=== PATIENT | male | born 1950 | race Caucasian/White ===

== ENCOUNTER 2016-08-06 13:34 | Emergency (ER) | payer MEDICARE, MEDICAID ==
[~2016-08-06] VITALS: Ht 188 cm; Wt 113.5 kg
[~2016-08-06 13:34] MED LIST: ADV1DS1; ALFU10TA6 PO; ALPR.5T PO; ALPR0.5T7 PO; ALPR0.5T72 PO; AMIT150T PO; AMLO5TAB2 PO; AMT50T; ASP81TEC PO; ASPI-587 PO; ASPI-84 PO; BIAXIN; BPR100T PO; BUPR150T PO; CARV12.5 PO; CIPR-120 PO; CIPR-226 PO; CIPR250S2 PO; CIPR500T4 PO; CIPR500T78 PO; CLOP75TA PO; CLPD75T PO; CYCL10TA9 PO; DOXA4TAB2 PO; FINA5TAB6 PO; FLUT1DIS27 IH; HYDR-2890 PO; HYDR-3720 PO; HYDR-3820 PO; HYDR-757 PO; INSASP10V SQ; INSU100I14 SQ; INSU100I4 SQ; INSU100V19 SQ; INSULIN; IPRA3AMP11 INH; ISM60TCR; ISOS30TA3 PO; ISOS60TA PO; LEVE1U SQ; LEVO250T11 PO; LEVO500T69 PO; LISI10TA PO; LISI10TA2 PO; METO-354 PO; METO100T2 PO; METO100T5 PO; MNTL10T PO; MTP25TSR PO; NITR-65 PO; NITR0.3T6 SL; NITR1OIN TD; NITR1PAT27 TD; NITR1PAT63 TD; NTR.4SL SL; OMEP20TA2 PO; ONDA4TAB11 PO; ONDA8TAB9 PO; ONDAN4ODT PO; OXYC-197 PO; PANT20TA2 PO; PRAV20TA3 PO; PRV20T PO; SULF1TAB23 PO; SULF1TAB35 PO; SULF1TAB38 PO; TMSL.4C PO; VERA120C2 PO; VOLTAREN; VRP240TCR PO; VYTORIN
--- NOTE | 2016-08-06 15:16 | ED General ---
General Chief Complaint: General Problems/Pain Stated Complaint: VOMITING Source of Information: Patient Exam Limitations: No Limitations History of Present Illness Time Seen by Provider: 15:10 Initial Comments This 65-year-old white male presents with a complaint of having missed his most recent dialysis, dysuria, and shortness of breath with wheezing. The patient is a not particularly eloquent historian but it appears that he missed his most recent dialysis, is concerned he may have a urinary tract infection, and believes that he may have some degree of fluid overload causing his shortness of breath or wheezing he denies associated fever, hematuria, productive cough, vomiting, diarrhea, or flank pain. Allergies and Home Medications Allergies Coded Allergies: Penicillins (Verified Allergy, Severe, YEAST INFECTION, 11/26/15) celecoxib (Unverified Allergy, Unknown, 01/31/10) Home Medications Alprazolam 0.5 Mg Tablet 0.5 MG PO TID PRN PRN ANXIETY (Reported) Amitriptyline Hcl 150 Mg Tablet 150 MG PO HS (Reported) Amlodipine Besylate 5 Mg Tablet 5 MG PO DAILY (Reported) Ciprofloxacin HCl 500 Mg Tablet #5 500 MG PO DAILY Prescribed by: SHELLY NUNEZ on 09/13/15 0323 Clopidogrel Bisulfate 75 Mg Tablet 75 MG PO HS (Reported) Cyclobenzaprine HCl 10 Mg Tablet 10 MG PO TID PRN PRN MUSCLE SPASMS (Reported) Finasteride 5 Mg Tablet 5 MG PO HS (Reported) Hydrocodone/Acetaminophen 1 Each Tablet 1 TAB PO Q6H (Reported) Hydrocodone/Acetaminophen 1 Each Tablet #10 1 EACH PO Q6H PRN PRN PAIN Prescribed by: NATI LUNA on 04/20/16 1552 Insulin Aspart 100 Unit/1 Ml Insuln.pen 15 UNITS SQ 1200 (Reported) LAST FILLED 03/19/15 Insulin Determir 100 U/Ml Insuln.pen 55 UNIT SQ BID (Reported) LAST FILLED 01/30/15 Isosorbide Mononitrate 30 Mg Tab.er.24h #30 30 MG PO DAILY Prescribed by: ROSELIA ESTEBAN on 05/06/15 0850 Levofloxacin 250 Mg Tablet #5 250 MG PO Q48H Prescribed by: NATI LUNA on 07/17/16 1429 Metoprolol Tartrate 100 Mg Tablet 100 MG PO BID (Reported) LAST FILLED 02/24/15 Montelukast Sodium 10 Mg Tablet 10 MG PO HS (Reported) Nitroglycerin 1 Each Patch.td24 0.4 MG TD DAILY PRN PRN CHEST PAIN (Reported) Ondansetron 4 Mg Tab.rapdis #10 4 MG PO Q6H PRN PRN NAUSEA Prescribed by: RAJI ZARATE on 02/17/16 1412 Oxycodone HCl/Acetaminophen 1 Each Tablet #10 1 EACH PO Q6H Prescribed by: NATI LUNA on 11/26/15 1617 Pantoprazole Sodium 20 Mg Tablet.dr #30 20 MG PO DAILY Prescribed by: ROSELIA ESTEBAN on 05/06/15 0850 Tamsulosin Hcl 0.4 Mg Cap 0.4 MG PO HS (Reported) Constitutional: No chills, No fever EENTM: No ear pain, No throat pain Respiratory: No cough, short of breath Cardiovascular: No chest pain Gastrointestinal: No diarrhea, No vomiting Genitourinary: dysuriaNo hematuria Musculoskeletal: No back pain Skin: No rash Psychiatric/Neurological: No Symptoms Reported Hematologic/Lymphatic: No Symptoms Reported Immunological/Allergic: no symptoms reported Past Ekoodlp-Dcphzx-Ogolbw Hx Patient Social History Alcohol Use: Denies Use Recreational Drug Use: No Smoking Status: Never a Smoker Recent Foreign Travel: No Contact w/Someone Who Travel: No Recent Hopitalizations: No Physical Abuse Screen: No Sexual Abuse: No Immunizations Up To Date Tetanus Booster (TDap): Unknown PED Vaccines UTD: No Date of Pneumonia Vaccine: Mar 30, 2012 Date of Influenza Vaccine: Jun 11, 2016 Seasonal Allergies Seasonal Allergies: No Surgeries HX Surgeries: Yes (R TKR, 3 BACK SURGERIES) Surgeries: Cardiac, Gallbladder, Joint Replacement, Orthopedic Respiratory Hx Respiratory Disorders: Yes (REACTIVE AIRWAY DZ; HOME 2 AT HS ) Respiratory Disorders: Asthma, Sleep Apnea, COPD Cardiovascular Hx Cardiac Disorders: Yes (ARTERIAL SCLEROTIC VASCULAR DZ, MODERATE CAD) Cardiac Disorders: Coronary Artery Disease, Heart Attack, High Cholesterol, Hypertension Neurological Hx Neurological Disorders: Yes (MILD MENTAL IMPAIRMENT AND SPEECH IMPEDIMENT) Neurological Disorders: Neuropathy Reproductive System Hx Reproductive Disorders: No Sexually Transmitted Disease: No HIV/AIDS: No Genitourinary Hx Genitourinary Disorders: Yes (urinary retention, ) Genitourinary Disorders: Benign Prostatic Hyperpl, Prostate Problems, Renal Failure, UTI-Chronic Gastrointestinal Hx Gastrointestinal Disorders: Yes Gastrointestinal Disorders: Gastroesophageal Reflux, Gall Bladder Disease Musculoskeletal Hx Musculoskeletal Disorders: Yes (titanium cesar in back- dr. whitley) Musculoskeletal Disorders: Arthritis, Chronic Back Pain Endocrine Hx Endocrine Disorders: Yes (DM TYPE 2) Endocrine Disorders: Diabetes, Insulin dep HEENT HX ENT Disorders: Yes HEENT Disorders: Cataract Loss of Vision: Denies Hearing Impairment: Denies Cancer Hx Cancer: No Psychosocial Hx Psychiatric Problems: Yes Behavioral Health Disorders: Anxiety Integumentary HX Skin/Integumentary Disorder: No Blood Transfusions Hx Blood Disorders: No Reviewed Nursing Assessment Reviewed/Agree w Nursing PMH: Yes Family Medical History Significant Family History: No Pertinent Family Hx Family Medial History: Diabetes mellitus FH: rheumatoid arthritis Hypertension Physical Exam Vital Signs Vital Sign - Last 12Hours 08/06/16 14:21 Temp 98.1 Pulse 74 Resp 16 B/P 140/79 Pulse Ox 96 O2 Delivery Room Air Capillary Refill : General Appearance: No Apparent Distress WD/WN Eyes: Bilateral Eye Normal Inspection HEENT: TMs Normal Neck: Normal Inspection Respiratory: Lungs Clear Cardiovascular: Regular Rate, Rhythm Gastrointestinal: Normal Bowel Sounds No Pulsatile Mass Non Tender Soft Back: Normal Inspection Extremity: Normal Capillary Refill Normal Range of Motion Neurologic/Psychiatric: Oriented x3 No Motor/Sensory Deficits Normal Mood/ Affect Skin: Normal Color Warm/Dry Progress/Results/Core Measures Results/Orders Lab Results Laboratory Tests Test 08/06/16 15:32 08/06/16 16:05 Range/Units Alanine Aminotransferase (ALT/SGPT) 13 0-55 U/L Albumin 3.7 3.2-4.5 G/DL Alkaline Phosphatase 98 40-136 U/L Anion Gap 12 5-14 MMOL/L Aspartate Amino Transf (AST/SGOT) 14 5-34 U/L BUN/Creatinine Ratio 10 Basophils # (Auto) 0.1 0.0-0.1 10^3/uL Basophils (%) (Auto) 1 0-10 % Blood Urea Nitrogen 49 H 7-18 MG/DL Calcium Level 8.9 8.5-10.1 MG/DL Carbon Dioxide Level 19 L 21-32 MMOL/L Chloride Level 101 98-107 MMOL/L Creatinine 5.05 H 0.60-1.30 MG/DL Eosinophils # (Auto) 0.4 H 0.0-0.3 10^3/uL Eosinophils (%) (Auto) 4 0-10 % Estimat Glomerular Filtration Rate 12 Glucose Level 181 H 70-105 MG/DL Hematocrit 35 L 40-54 % Hemoglobin 12.1 L 13.3-17.7 G/DL Lymphocytes # (Auto) 2.5 1.0-4.0 X 10^3 Lymphocytes (%) (Auto) 25 12-44 % Mean Corpuscular Hemoglobin 30 25-34 PG Mean Corpuscular Hemoglobin Concent 35 32-36 G/DL Mean Corpuscular Volume 87 80-99 FL Mean Platelet Volume 10.6 H 7.4-10.4 FL Monocytes # (Auto) 0.9 0.0-1.0 X 10^3 Monocytes (%) (Auto) 9 0-12 % Neutrophils # (Auto) 6.1 1.8-7.8 X 10^3 Neutrophils (%) (Auto) 61 42-75 % Platelet Count 187 130-400 10^3/uL Potassium Level 4.5 3.6-5.0 MMOL/L Red Blood Count 4.00 L 4.35-5.85 10^6/uL Red Cell Distribution Width 14.3 10.0-14.5 % Sodium Level 132 L 135-145 MMOL/L Total Bilirubin 0.3 0.1-1.0 MG/DL Total Protein 7.4 6.4-8.2 G/DL White Blood Count 10.0 4.3-11.0 10^3/uL Urine Bacteria NEGATIVE /HPF Urine Bilirubin NEGATIVE NEGATIVE Urine Casts NONE /LPF Urine Clarity SLIGHTLY CLOUDY Urine Color YELLOW Urine Crystals PRESENT H /LPF Urine Culture Indicated NO Urine Glucose (UA) 3+ H NEGATIVE Urine Ketones NEGATIVE NEGATIVE Urine Leukocyte Esterase 3+ H NEGATIVE Urine Mucus NEGATIVE /LPF Urine Nitrite NEGATIVE NEGATIVE Urine Protein 3+ H NEGATIVE Urine RBC NONE /HPF Urine RBC (Auto) 2+ H NEGATIVE Urine Specific [place] 1.015 L 1.016-1.022 Urine Squamous Epithelial Cells NONE /HPF Urine Triple Phosphate Crystals LARGE H /LPF Urine Urobilinogen NORMAL NORMAL MG/DL Urine WBC NONE /HPF Urine pH 9 5-9 My Orders Orders-PRERNA DE LA ROSA MD Cbc With Automated Diff (08/06/16 15:07) Comprehensive Metabolic Panel (08/06/16 15:07) Ua Culture If Indicated (08/06/16 15:07) Chest 1 View, Ap/Pa Only (08/06/16 15:07) Levofloxacin Tablet (Levaquin Tablet) (1/8/17 17:00) Vital Signs/I&O Vital Sign - Last 12Hours 08/06/16 14:21 Temp 98.1 Pulse 74 Resp 16 B/P 140/79 Pulse Ox 96 O2 Delivery Room Air Progress Note : Time: 16:47 Progress Note Patient's urinalysis demonstrated 3+ leukocytes. The patient's renal impairment demonstrated a creatinine of 5 with a BUN of 60. Patient's white count was unremarkable. Patient and family relate that he's been having recurrent urinary tract infections. 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 Salazar). Departure Impression Impression: Primary Impression: Urinary tract infection Qualified Code: N30.00 - Acute cystitis without hematuria Disposition: HOME, SELF-CARE Condition: Improved Departure-Patient Inst. Decision time for Depature: 16:55 Referrals: DESHAUN RICK MD (PCP/Family) Primary Care Physician Patient Instructions: Acute Cystitis (DC) Add. Discharge Instructions: Levaquin as prescribed. Close follow-up with your flight engineer instructor and Dr. Salazar. Come back if any problems or questions. All discharge instructions reviewed with patient and/or family. Voiced understanding. PRERNA DE LA ROSA MD Aug 06, 2016 15:16
--- NOTE | 2016-08-06 15:26 | Diagnostic Imaging Report ---
INDICATION: Nausea and vomiting. COMPARISON: 07/17/16. EXAMINATION: Single view of the chest demonstrates clear lungs, bilaterally. The heart size is normal. There is no pneumothorax. Central venous catheter is stable. IMPRESSION: Negative chest. Dictated by: Dictated on workstation # [id number]
[2016-08-06 15:45] LABS: BASOPHILS # (AUTO) 0.1 10^3/uL (0.0-0.1); BASOPHILS % (AUTO) 1 % (0-10); EOSINOPHILS # (AUTO) 0.4 10^3/uL (0.0-0.3); EOSINOPHILS % (AUTO) 4 % (0-10); LYMPHOCYTES # (AUTO) 2.5 X 10^3 (1.0-4.0); LYMPHOCYTES % (AUTO) 25 % (12-44); MEAN CORPUSCULAR HEMOGLOBIN 30 PG (25-34); MEAN CORPUSCULAR HGB CONC 35 G/DL (32-36); MEAN CORPUSCULAR VOLUME 87 FL (80-99); MEAN PLATELET VOLUME 10.6 FL (7.4-10.4); MONOCYTES # (AUTO) 0.9 X 10^3 (0.0-1.0); MONOCYTES % (AUTO) 9 % (0-12); NEUTROPHILS # (AUTO) 6.1 X 10^3 (1.8-7.8); NEUTROPHILS % (AUTO) 61 % (42-75); PLATELET COUNT 187 10^3/uL (130-400); RED CELL DISTRIBUTION WIDTH 14.3 % (10.0-14.5)
[2016-08-06 16:10] LABS: ALBUMIN 3.7 G/DL (3.2-4.5); BILIRUBIN,TOTAL 0.3 MG/DL (0.1-1.0); CALCIUM 8.9 MG/DL (8.5-10.1); CREATININE SERUM 5.05 MG/DL (0.60-1.30); POTASSIUM 4.5 MMOL/L (3.6-5.0); TOTAL PROTEIN 7.4 G/DL (6.4-8.2)
[2016-08-06 16:15] LABS: BILIRUBIN,URINE NEGATIVE (NEGATIVE); KETONES,URINE NEGATIVE (NEGATIVE); LEUKOCYTE ESTERASE ,URINE 3+ (NEGATIVE); NITRITE,URINE NEGATIVE (NEGATIVE); PH,URINE 9 (5-9); PROTEIN,URINE 3+ (NEGATIVE); UROBILINOGEN,URINE NORMAL (NORMAL)
[2016-08-06 16:25] LABS: TRIPLE PHOSPHATE CRYSTAL,UR LARGE /LPF
[2016-08-06] MEDS ORDERED: LEVOFLOXACIN 500 MG TAB (LEVAQUIN) PO ONE (17:00)
[2016-08-06 17:03] VITALS: BP 140/79
== END 2016-08-06 17:03 | disposition home or self-care (01) ==
LOC: EDUNIT# 13:34 → ER 13:36
DX: N39.0 Urinary tract infection, site not specified (principal); I12.0 Hypertensive chronic kidney disease with stage 5 chronic kidney disease or end stage renal disease; N18.6 End stage renal disease; Z99.2 Dependence on renal dialysis; J44.9 Chronic obstructive pulmonary disease, unspecified; E11.9 Type 2 diabetes mellitus without complications; Z79.4 Long term (current) use of insulin; Z79.02 Long term (current) use of antithrombotics/antiplatelets; Z79.899 Other long term (current) drug therapy
CPT/HCPCS: 36415; 71010; 80053; 81000; 85025

== ENCOUNTER 2016-08-16 23:46 | Emergency (ER) | payer MEDICARE, MEDICAID ==
[~2016-08-16] VITALS: Ht 188 cm; Wt 112.6 kg
[2016-08-17 00:15] LABS: BILIRUBIN,URINE NEGATIVE (NEGATIVE); KETONES,URINE NEGATIVE (NEGATIVE); LEUKOCYTE ESTERASE ,URINE 3+ (NEGATIVE); NITRITE,URINE NEGATIVE (NEGATIVE); PH,URINE 8 (5-9); PROTEIN,URINE 3+ (NEGATIVE); UROBILINOGEN,URINE NORMAL (NORMAL)
[2016-08-17] MEDS ORDERED: ONDANSETRON 4 MG (ZOFRAN) ORAL DISSOLVE TAB PO ONE (00:15)
[2016-08-17] MEDS ORDERED: KETOROLAC 60 MG/2 ML VIAL IM ONE (00:15)
[2016-08-17] MEDS ORDERED: diphenhydrAMINE 50 MG/ML INJ (BENADRYL) IM ONE (00:15)
[2016-08-17 00:26] LABS: BASOPHILS # (AUTO) 0.1 10^3/uL (0.0-0.1); BASOPHILS % (AUTO) 1 % (0-10); EOSINOPHILS # (AUTO) 0.3 10^3/uL (0.0-0.3); EOSINOPHILS % (AUTO) 4 % (0-10); LYMPHOCYTES # (AUTO) 2.4 X 10^3 (1.0-4.0); LYMPHOCYTES % (AUTO) 33 % (12-44); MEAN CORPUSCULAR HEMOGLOBIN 31 PG (25-34); MEAN CORPUSCULAR HGB CONC 36 G/DL (32-36); MEAN CORPUSCULAR VOLUME 86 FL (80-99); MEAN PLATELET VOLUME 11.1 FL (7.4-10.4); MONOCYTES # (AUTO) 0.9 X 10^3 (0.0-1.0); MONOCYTES % (AUTO) 13 % (0-12); NEUTROPHILS # (AUTO) 3.5 X 10^3 (1.8-7.8); NEUTROPHILS % (AUTO) 49 % (42-75); PLATELET COUNT 173 10^3/uL (130-400); RED BLOOD COUNT 4.23 10^6/uL (4.35-5.85); RED CELL DISTRIBUTION WIDTH 13.8 % (10.0-14.5); WHITE BLOOD COUNT 7.2 10^3/uL (4.3-11.0)
[2016-08-17 00:28] LABS: SQUAMOUS EPITHELIAL CELL,UR RARE /HPF; TRIPLE PHOSPHATE CRYSTAL,UR FEW /LPF; WBC,URINE 0-2 /HPF
[2016-08-17 00:36] LABS: INR 1.1 (0.8-1.4); PROTHROMBIN TIME PATIENT 13.4 SEC (12.2-14.7)
[2016-08-17 00:49] LABS: ALBUMIN 3.7 G/DL (3.2-4.5); BILIRUBIN,TOTAL 0.4 MG/DL (0.1-1.0); CALCIUM 8.3 MG/DL (8.5-10.1); CREATININE SERUM 4.64 MG/DL (0.60-1.30); POTASSIUM 3.4 MMOL/L (3.6-5.0); TOTAL PROTEIN 7.6 G/DL (6.4-8.2)
[2016-08-17] MEDS ORDERED: ONDANSETRON 4 MG/2 ML (SDV) Z0FRAN IVP ONE (01:00)
--- NOTE | 2016-08-17 01:00 | ED GI ---
General Chief Complaint: Abdominal/GI Problems Stated Complaint: N/V Nursing Triage Note: Reports nausea and feeling that he could throw up three times today. Pt is dialysis pt. Pt is unable to understand some basic principles of renal failure discussed with him. Sepsis Screen: No Definite Risk Source of Information: Patient, EMS, Old Records Exam Limitations: Other (PT IS VERY LIMITED HISTORIAN, WITH SPEECH IMPEDIMENT AND WITH SOME MENTAL IMPAIRMENT) History of Present Illness Time Seen By Provider: 23:47 Initial Comments PT ARRIVES VIA [facility] FROM HOME--PT LIVES ALONE C/O ONGOING NAUSEA AND VOMITING X 1 MONTH STATES HE "TRIED TO THROW UP 3 TIMES THIS MORNING" BUT DID NOT VOMIT. TOOK 2 ZOFRAN THIS AM ( IS ONLY TIME HE HAS TAKEN THEM, AND PRESCRIBED THEM BY DR. RICK ON 08/09/16). STATES HE VOMITED ONCE A FEW DAYS AGO NO DIARRHEA--HAD 2 NORMAL BM'S TODAY. NO BLACK/BLOODY/TARRY STOOLS C/O MILD DIFFUSE ABDOMINAL SORENESS--HAS TAKEN NOTHING FOR PAIN NO KNOWN FEVER PT HAS INDWELLING CARRILLO CATHETER, AND HAS FREQUENT UTI'S PT WAS SEEN HERE ON 07/17/16 AND 08/06/16 AND WAS DIAGNOSED WITH UTI AND PLACED ON LEVAQUIN, AND WAS INSTRUCTED TO FOLLOW UP WITH UROLOGIST, DR. BROOKE PT STATES SHE FOLLOWED UP WITH DR. CAMARA IN [place] PT HAS ESRD AND IS ON DIALYSIS SUNDAY/SUNDAY/SUNDAY PT WITH MULTIPLE VISITS HERE FOR VARIOUS COMPLAINTS--THIS IS 4TH VISIT HERE IN THE LAST 4 WEEKS PCP: FT. VERA ROLDAN Allergies and Home Medications Allergies Coded Allergies: Penicillins (Verified Allergy, Severe, YEAST INFECTION, 11/26/15) celecoxib (Unverified Allergy, Unknown, 01/31/10) Home Medications Alprazolam 0.5 Mg Tablet 0.5 MG PO TID PRN PRN ANXIETY (Reported) Amitriptyline Hcl 150 Mg Tablet 150 MG PO HS (Reported) Amlodipine Besylate 5 Mg Tablet 5 MG PO DAILY (Reported) Ciprofloxacin HCl 500 Mg Tablet #5 500 MG PO DAILY Prescribed by: SHELLY NUNEZ on 09/13/15 0323 Clopidogrel Bisulfate 75 Mg Tablet 75 MG PO HS (Reported) Cyclobenzaprine HCl 10 Mg Tablet 10 MG PO TID PRN PRN MUSCLE SPASMS (Reported) Finasteride 5 Mg Tablet 5 MG PO HS (Reported) Hydrocodone/Acetaminophen 1 Each Tablet 1 TAB PO Q6H (Reported) Hydrocodone/Acetaminophen 1 Each Tablet #10 1 EACH PO Q6H PRN PRN PAIN Prescribed by: NATI LUNA on 04/20/16 1552 Hyoscyamine Sulfate 0.125 Mg Tab.subl #15 1-2 TAB SL Q4H Prescribed by: PEYTON VARGAS on 08/17/16 0133 Insulin Aspart 100 Unit/1 Ml Insuln.pen 15 UNITS SQ 1200 (Reported) LAST FILLED 03/19/15 Insulin Determir 100 U/Ml Insuln.pen 55 UNIT SQ BID (Reported) LAST FILLED 01/30/15 Isosorbide Mononitrate 30 Mg Tab.er.24h #30 30 MG PO DAILY Prescribed by: ROSELIA ESTEBAN on 05/06/15 0850 Levofloxacin 250 Mg Tablet #5 250 MG PO Q48H Prescribed by: NATI LUNA on 07/17/16 1429 Metoprolol Tartrate 100 Mg Tablet 100 MG PO BID (Reported) LAST FILLED 02/24/15 Montelukast Sodium 10 Mg Tablet 10 MG PO HS (Reported) Nitrofurantoin Monohyd/M-Cryst 100 Mg Capsule #30 100 MG PO BID Prescribed by: PEYTON VARGAS on 08/17/16 0133 Nitroglycerin 1 Each Patch.td24 0.4 MG TD DAILY PRN PRN CHEST PAIN (Reported) Ondansetron 4 Mg Tab.rapdis #10 4 MG PO Q6H PRN PRN NAUSEA Prescribed by: RAJI ZARATE on 02/17/16 1412 Oxycodone HCl/Acetaminophen 1 Each Tablet #10 1 EACH PO Q6H Prescribed by: NATI LUNA on 11/26/15 1617 Pantoprazole Sodium 20 Mg Tablet.dr #30 20 MG PO DAILY Prescribed by: ROSELIA ESTEBAN on 05/06/15 0850 Tamsulosin Hcl 0.4 Mg Cap 0.4 MG PO HS (Reported) Review of Systems Constitutional: no symptoms reported Respiratory: No Symptoms Reported Cardiovascular: No Symptoms Reported Gastrointestinal: See HPI Abdominal Pain Nausea Genitourinary: See HPI (INDWELLING CARRILLO CATHETER) Musculoskeletal: no symptoms reported Skin: no symptoms reported Psychiatric/Neurological: No Symptoms Reported Endocrine: No Symptoms Reported Hematologic/Lymphatic: No Symptoms Reported Past Vcmnple-Koyqfs-Cyamsa Hx Patient Social History Alcohol Use: Denies Use Recreational Drug Use: No Smoking Status: Never a Smoker Recent Foreign Travel: No Contact w/Someone Who Travel: No Recent Infectious Disease Expo: No Recent Hopitalizations: No Physical Abuse Screen: No Sexual Abuse: No Immunizations Up To Date Tetanus Booster (TDap): Unknown PED Vaccines UTD: No Date of Pneumonia Vaccine: Mar 30, 2012 Date of Influenza Vaccine: Jun 11, 2016 Seasonal Allergies Seasonal Allergies: No Surgeries HX Surgeries: Yes (R TKR, 3 BACK SURGERIES) Surgeries: Cardiac, Gallbladder, Joint Replacement, Orthopedic Respiratory Hx Respiratory Disorders: Yes (REACTIVE AIRWAY DZ; HOME 2 AT HS ) Respiratory Disorders: Asthma, Sleep Apnea, COPD Cardiovascular Hx Cardiac Disorders: Yes (ARTERIAL SCLEROTIC VASCULAR DZ, MODERATE CAD) Cardiac Disorders: Coronary Artery Disease, Heart Attack, High Cholesterol, Hypertension Neurological Hx Neurological Disorders: Yes (MILD MENTAL IMPAIRMENT AND SPEECH IMPEDIMENT) Neurological Disorders: Neuropathy Reproductive System Hx Reproductive Disorders: No Sexually Transmitted Disease: No HIV/AIDS: No Genitourinary Hx Genitourinary Disorders: Yes (urinary retention, ) Genitourinary Disorders: Benign Prostatic Hyperpl, Prostate Problems, Renal Failure, UTI-Chronic Gastrointestinal Hx Gastrointestinal Disorders: Yes Gastrointestinal Disorders: Gastroesophageal Reflux, Gall Bladder Disease Musculoskeletal Hx Musculoskeletal Disorders: Yes (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) Musculoskeletal Disorders: Arthritis, Chronic Back Pain Endocrine Hx Endocrine Disorders: Yes (DM TYPE 2) Endocrine Disorders: Diabetes, Insulin dep HEENT HX ENT Disorders: Yes HEENT Disorders: Cataract Loss of Vision: Denies Hearing Impairment: Denies Cancer Hx Cancer: No Psychosocial Hx Psychiatric Problems: Yes Behavioral Health Disorders: Anxiety Integumentary HX Skin/Integumentary Disorder: No Blood Transfusions Hx Blood Disorders: No Family Medical History Significant Family History: No Pertinent Family Hx Family Medial History: Diabetes mellitus FH: rheumatoid arthritis Hypertension Physical Exam Vital Signs VS - Last 72 Hours, by Label 08/16/16 23:48 Temp 98.1 Pulse 82 Resp 20 B/P 145/99 Pulse Ox 96 O2 Delivery Room Air Capillary Refill : Less Than 3 Seconds General Appearance: WD/WN no apparent distress other (CONSTANT MOVEMENTS) HEENT: PERRL/EOMI Respiratory: normal breath sounds no respiratory distress no accessory muscle use Cardiovascular: regular rate, rhythm no murmur Gastrointestinal: normal bowel sounds soft no organomegaly no pulsatile massNo distended, No guarding, No rebound, tenderness (STATES IS TENDER WHEN QUESTIONED IF IT HURT WHEN ABDOMEN IS PALPATED, BUT WHEN PT IS DISTRACTED HE DOES NOT C/O PAIN ON PALPATION)No hernia, No mass Extremities: normal inspection Back: no CVA tenderness 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 no motor/sensory deficits alert normal mood/affect oriented x 3 other (MENTAL IMPAIRMENT AND SPEECH IMPEDIMENT ARE CHRONIC AND STABLE/PT IS AT NORMAL BASELINE) Skin: normal color warm/dry Progress/Results/Core Measures Results/Orders Lab Results Laboratory Tests Test 08/16/16 00:00 08/16/16 23:55 Range/Units Activated Partial Thromboplast Time 33 24-35 SEC Alanine Aminotransferase (ALT/SGPT) 12 0-55 U/L Albumin 3.7 3.2-4.5 G/DL Alkaline Phosphatase 104 40-136 U/L Amylase Level 26 25-125 U/L Anion Gap 17 H 5-14 MMOL/L Aspartate Amino Transf (AST/SGOT) 14 5-34 U/L BUN/Creatinine Ratio 7 Basophils # (Auto) 0.1 0.0-0.1 10^3/uL Basophils (%) (Auto) 1 0-10 % Blood Urea Nitrogen 31 H 7-18 MG/DL Calcium Level 8.3 L 8.5-10.1 MG/DL Carbon Dioxide Level 23 21-32 MMOL/L Chloride Level 94 L 98-107 MMOL/L Creatinine 4.64 H 0.60-1.30 MG/DL Eosinophils # (Auto) 0.3 0.0-0.3 10^3/uL Eosinophils (%) (Auto) 4 0-10 % Estimat Glomerular Filtration Rate 13 Glucose Level 183 H 70-105 MG/DL Hematocrit 36 L 40-54 % Hemoglobin 12.9 L 13.3-17.7 G/DL INR Comment 1.1 0.8-1.4 Lipase 28 8-78 U/L Lymphocytes # (Auto) 2.4 1.0-4.0 X 10^3 Lymphocytes (%) (Auto) 33 12-44 % Mean Corpuscular Hemoglobin 31 25-34 PG Mean Corpuscular Hemoglobin Concent 36 32-36 G/DL Mean Corpuscular Volume 86 80-99 FL Mean Platelet Volume 11.1 H 7.4-10.4 FL Monocytes # (Auto) 0.9 0.0-1.0 X 10^3 Monocytes (%) (Auto) 13 H 0-12 % Neutrophils # (Auto) 3.5 1.8-7.8 X 10^3 Neutrophils (%) (Auto) 49 42-75 % Platelet Count 173 130-400 10^3/uL Potassium Level 3.4 L 3.6-5.0 MMOL/L Prothrombin Time 13.4 12.2-14.7 SEC Red Blood Count 4.23 L 4.35-5.85 10^6/uL Red Cell Distribution Width 13.8 10.0-14.5 % Sodium Level 134 L 135-145 MMOL/L Total Bilirubin 0.4 0.1-1.0 MG/DL Total Protein 7.6 6.4-8.2 G/DL White Blood Count 7.2 4.3-11.0 10^3/uL Urine Bacteria LARGE H /HPF Urine Bilirubin NEGATIVE NEGATIVE Urine Casts NONE /LPF Urine Clarity SLIGHTLY CLOUDY Urine Color YELLOW Urine Crystals PRESENT H /LPF Urine Culture Indicated YES Urine Glucose (UA) 2+ H NEGATIVE Urine Ketones NEGATIVE NEGATIVE Urine Leukocyte Esterase 3+ H NEGATIVE Urine Mucus NEGATIVE /LPF Urine Nitrite NEGATIVE NEGATIVE Urine Protein 3+ H NEGATIVE Urine RBC 0-2 /HPF Urine RBC (Auto) 3+ H NEGATIVE Urine Specific [place] 1.010 L 1.016-1.022 Urine Squamous Epithelial Cells RARE /HPF Urine Triple Phosphate Crystals FEW H /LPF Urine Urobilinogen NORMAL NORMAL MG/DL Urine WBC 0-2 /HPF Urine pH 8 5-9 My Orders Orders-SAM,PEYTON K DO Saline Lock/Iv-Start (08/16/16 23:56) Amylase (08/16/16 23:56) Cbc With Automated Diff (08/16/16 23:56) Comprehensive Metabolic Panel (08/16/16 23:56) Lipase (08/16/16 23:56) Protime With Inr (08/16/16 23:56) Partial Thromboplastin Time (08/16/16 23:56) Ua Culture If Indicated (08/16/16 23:56) Urine Culture (08/16/16 23:55) Ct Abdomen/Pelvis Wo (08/17/16 00:25) Ondansetron Injection (Zofran Injectio (08/17/16 01:00) Hyoscyamine Sl Tablet (Levsin Sl Tablet) (08/17/16 01:15) Meropenem (Merrem 500 Mg) (08/17/16 01:30) Nitrofurantoin Capsule,Macro (Macrobid C (08/17/16 01:30) Nitrofurantoin Capsule (Macrodantin Caps (08/17/16 01:45) Medications Given in ED Current Medications Medications Dose Ordered Sig/Gisell Route Start Time Stop Time Status Last Admin Dose Admin Hyoscyamine Sulfate 0.25 mg 0.25 mg ONCE ONCE PO 08/17/16 01:15 08/17/16 01:16 DC 08/17/16 01:24 0.25 MG Meropenem/Sodium Chloride 100 ml @ 200 mls/hr ONCE ONCE IV 08/17/16 01:30 08/17/16 01:59 08/17/16 01:29 200 MLS/HR Nitrofurantoin Macrocrystals 100 mg ONCE ONCE PO 08/17/16 01:45 08/17/16 01:46 UNV 08/17/16 01:33 100 MG Ondansetron HCl 4 mg ONCE ONCE IVP 08/17/16 01:00 08/17/16 01:01 DC 08/17/16 01:22 4 MG Vital Signs/I&O Vital Sign - Last 12Hours 08/16/16 23:48 Temp 98.1 Pulse 82 Resp 20 B/P 145/99 Pulse Ox 96 O2 Delivery Room Air Blood Pressure Mean: 114 Progress Note : Progress Note NO VOMITING DURING ER STAY EXHAUSTIVE DISCUSSIONS BY BOTH MYSELF AND RN WITH PT REGARDING HIS CONDITION, MEDICATIONS AND TREATMENT PLAN. REVIEWED URINE C & S FROM 07/17/16--GREW PROVIDENCIA RETTGERI, ENTEROCOCCUS FAECALIS AND ALCALIGENES FAECALIS. Diagnostic Imaging Comments CT ABDOMEN/PELVIS--NO ACUTE PROCESS, PER [facility] VIA FAX @ [phone] Reviewed: Reviewed by Me Departure Impression Impression: Primary Impression: PERSISTENT UTI Additional Impressions: End stage renal failure on dialysis ONGOING NAUSEA AND VOMITING INDWELLING CARRILLO CATHETER Disposition: HOME, SELF-CARE Condition: Stable Departure-Patient Inst. Referrals: DESHAUN RICK MD (PCP/Family) Primary Care Physician Patient Instructions: Dialysis Diet , End Stage Kidney Disease (DC), How to Care for Your Carrillo Catheter, Male, Nausea and Vomiting, Adult (DC), Urinary Tract Infection, Adult (DC) Add. Discharge Instructions: FOLLOW UP WITH DR. RICK THIS WEEK FOR FURTHER CARE CLEAR LIQUIDS TO DRINK BLAND DIET--NO SPICY, GREASY/HIGH FAT OR ACIDIC FOOD OR DRINK TAKE YOUR ZOFRAN NEEDED FOR NAUSEA OR VOMITING FOLLOW WITH YOUR EXHIBIT SPECIALIST AND UROLOGIST THIS WEEK FOR FURTHER CARE All discharge instructions reviewed with patient and/or family. Voiced understanding. Scripts Hyoscyamine Sulfate (Levsin-Sl)0.125 Mg Tab.subl1-2 Tab SL Q4H Abdominal Pain # 15 TAB Prov:PEYTON VARGAS DO 08/17/16 Nitrofurantoin Monohyd/M-Cryst (Macrobid 100 mg Capsule)100 Mg [id number] Mg PO BID #30 CAP Prov:PEYTON VARGAS DO 08/17/16 PEYTON VARGAS DO Aug 17, 2016 01:00
[2016-08-17] MEDS ORDERED: HYOSCYAMINE 0.125 MG (LEVSIN) TAB PO ONE (01:15)
[2016-08-17] MEDS ORDERED: MEROPENEM 500 MG in NORMAL SALINE (BAXTER MINI) 100 ML IV ONE (01:30)
[2016-08-17] MEDS: NITROFURANTOIN 100 MG (MACROBID) CAPSULE PO ONE ×2 (01:32→01:33)
[2016-08-17] MEDS ORDERED: NITR-65 PO (01:33)
[2016-08-17] MEDS ORDERED: HYOS0.1283 SL (01:33)
[2016-08-17] MEDS ORDERED: NITROFURANTOIN 50 MG (MACRODANTIN) CAP PO ONE (01:45)
[2016-08-17 02:23] VITALS: BP 147/92
--- NOTE | 2016-08-17 07:34 | Diagnostic Imaging Report ---
PROCEDURE: CT abdomen and pelvis without contrast. TECHNIQUE: Multiple contiguous axial images were obtained through the abdomen and pelvis without the use of intravenous contrast. INDICATION: Nausea and vomiting. Abdominal pain. COMPARISON: CT abdomen and pelvis without contrast 09/13/2015. FINDINGS: Lung bases are clear. Scattered arterial calcifications including coronary and aortic. Cholecystectomy. Calcified granulomas in the liver and spleen. Atrophic pancreas. Cortical thinning of the kidneys. Bailey catheter within a decompressed bladder. The adrenals and appendix are negative. No free intraperitoneal air/fluid, lymphadenopathy or evidence of bowel obstruction. Postoperative changes in the lumbar spine. Degenerative changes throughout the visualized spine. IMPRESSION: No acute CT findings in the abdomen or pelvis. Dictated by: Dictated on workstation # [id number]
== END 2016-08-17 02:23 | disposition home or self-care (01) ==
LOC: EDUNIT# 23:46 → ER 23:47
DX: N39.0 Urinary tract infection, site not specified (principal); J44.9 Chronic obstructive pulmonary disease, unspecified; I12.0 Hypertensive chronic kidney disease with stage 5 chronic kidney disease or end stage renal disease; Z99.2 Dependence on renal dialysis; E11.9 Type 2 diabetes mellitus without complications; R47.9 Unspecified speech disturbances; Z79.4 Long term (current) use of insulin; Z79.02 Long term (current) use of antithrombotics/antiplatelets; Z79.899 Other long term (current) drug therapy
CPT/HCPCS: 36415; 74176; 80053; 81000; 82150; 83690; 85025; 85610; 85730; 87088; 87186; 96365; 96375

== ENCOUNTER 2016-12-06 13:14 | Outpatient (RCR) | payer MEDICARE, MEDICAID ==
[~2016-12-06 13:14] MED LIST changes: +HYOS0.1283 SL
== END 2016-12-06 16:00 | disposition home or self-care (01) ==
LOC: WOUNDCARE 13:14
PROVIDERS: ATTEND Surgery
DX: E11.42 Type 2 diabetes mellitus with diabetic polyneuropathy (principal); S90.851A Superficial foreign body, right foot, initial encounter; W45.8XXA Other foreign body or object entering through skin, initial encounter; Y99.8 Other external cause status
CPT/HCPCS: 99213

== ENCOUNTER → 2016-12-28 | Outpatient (CLI) | payer MEDICARE, MEDICAID ==
--- NOTE | 2016-12-28 17:08 | Diagnostic Imaging Report ---
INDICATION: Spinal pain. Previous lumbar spinal surgeries. Difficulty walking. COMPARISON: No prior thoracic imaging for comparison at the T-spine. FINDINGS: Thoracic spinal cord itself reveals a normal volume, a normal morphology and a normal signal intensity. No cord compression. No high-grade canal stenosis at any thoracic vertebral body or disc space level is found. There is mild leftward convexity upper thoracic scoliotic curvature without anterior or posterior listhesis. The thoracic vertebral body statures are within normal limits. There is disc desiccation, disc space loss, disc bulge and endplate osteophytes as a chronic degenerative finding throughout the thoracic spine. Osteophyte disc material is oriented anterior greater than posterior. There is no paravertebral mass, hemorrhage or fluid collection. No acute epidural pathology. There is no acute finding. IMPRESSION: Christine thoracic spondylosis without substantial canal stenosis. Normal cord. Mild leftward convexity upper thoracic scoliosis without listhesis. No compression deformity or other fracture pattern. No marrow edema. No acute pathology. No epidural abnormality. Dictated by: Dictated on workstation # [id number]
--- NOTE | 2016-12-28 17:49 | Diagnostic Imaging Report ---
PROCEDURE: MRI lumbar spine. TECHNIQUE: Multiplanar, multisequence MRI of the lumbar spine was performed without contrast. INDICATION: Spinal pain. COMPARISON: Exam compared to 04/28/2015. FINDINGS: L3-L4 interbody and posterior fusions showed no substantial change. The alignment is stable. The conus appeared normal, and there is no intrathecal abnormality. No acute epidural pathology. There was no paravertebral mass, hemorrhage or fluid collection. There is some motion degradation limiting exam sensitivity. Left-sided pedicular screws showed no change in alignment. Right paracentral broad-based disc protrusion at L1-L2 effaces the ventral thecal sac and in conjunction with posterior element hypertrophy results in a moderate degree of canal stenosis with moderate right foraminal narrowing. This has not substantially changed. The L2-L3 level showed no significant canal, foraminal or recess stenosis or change. L3-L4: Postoperative changes with right paramedian endplate osteophytes indenting the ventral thecal sac and resulting in moderate canal stenosis. There is mild biforaminal narrowing at this level. This has not substantially changed. L4-L5: Mild canal and mild biforaminal stenosis owing to osteophyte disc material has not substantially changed. The L5-S1 level shows near endplate fusion with mild biforaminal narrowing and no substantial stenosis to the thecal sac is unchanged. IMPRESSION: No significant change in multilevel stenoses. Postoperative change. Disc displacement, facet arthrosis and ligamentous thickening. Stenoses of the canal and neural foramina listed level by level above. Normal alignment. No acute osseous pathology. No adverse development. No fluid collection. Dictated by: Dictated on workstation # [id number]
== END ==
LOC: RAD 15:48
PROVIDERS: ATTEND Pain Medicine Interventional Pain Medicine
DX: M48.06 Spinal stenosis, lumbar region (principal); M47.814 Spondylosis without myelopathy or radiculopathy, thoracic region; G89.29 Other chronic pain
CPT/HCPCS: 72146; 72148

== ENCOUNTER → 2017-04-17 | Outpatient (CLI) | payer MEDICARE, MEDICAID ==
[~2017-04-17] MED LIST changes: +CATHETER FLUSH 10 ML SYR IV PRN; +REGADENOSON 0.4 MG/5 ML SYR (LEXISCAN) IV ONE
[2017-04-17 13:36] VITALS: BP 108/76
--- NOTE | 2017-04-18 14:31 | STRESS TEST ---
DATE OF SERVICE: 04/17/2017 RESTING AND POST REGADENOSON TECHNETIUM 99M TETROFOSMIN SPECT CT IMAGING ORDERING PHYSICIAN: Dr. Toro. PRIMARY CARE PHYSICIAN: Dr. aVlderrama. CLINICAL DIAGNOSIS: Coronary artery disease. Baseline images were carried out after injection of 9.97 mCi technetium-99m tetrofosmin, but this is followed by 0.4 mg regadenoson and 29.1 mCi of tetrofosmin for stress imaging. The electrocardiogram showed sinus rhythm at baseline and it did not change significantly with the regadenoson infusion. Review of images at rest and following stress does not indicate any significant perfusion defects consistent with significant myocardial ischemia or infarction. Gated images show normal global left ventricular systolic function with normal regional wall motion. Left ventricular ejection fraction is calculated to be 74%. Left ventricular end diastolic volume is 82 mL. TID is absent (0.97). CONCLUSIONS: 1. No evidence of any significant myocardial ischemia or infarction on this study. 2. Normal regional wall motion. 3. Normal global left ventricular systolic function with a calculated ejection fraction of 74%. Job ID: [id number] DocumentID: [id number] Dictated Date: 04/17/2017 16:07:00 Sample Taker Operator Date: 04/18/2017 12:57:54 Dictated By: KYLE TROO MD, MA, FACP, FACC,
== END ==
LOC: CARD 12:14
PROVIDERS: ATTEND Internal Medicine Cardiovascular Disease
DX: I25.10 Atherosclerotic heart disease of native coronary artery without angina pectoris (principal); R07.89 Other chest pain; I12.9 Hypertensive chronic kidney disease with stage 1 through stage 4 chronic kidney disease, or unspecified chronic kidney disease; N18.3 Chronic kidney disease, stage 3 (moderate); E11.9 Type 2 diabetes mellitus without complications; E78.4 Other hyperlipidemia
CPT/HCPCS: 78452; 93017

== ENCOUNTER 2017-06-22 20:06 | Emergency (ER) | payer MEDICARE, MEDICAID ==
[~2017-06-22] VITALS: Ht 182.9 cm; Wt 95.3 kg
[~2017-06-22 20:06] MED LIST changes: -CATHETER FLUSH 10 ML SYR IV PRN; -REGADENOSON 0.4 MG/5 ML SYR (LEXISCAN) IV ONE
[2017-06-22] MEDS ORDERED: NS IV 1000 ML 1,000 ML IV ONE (20:16)
--- NOTE | 2017-06-22 20:28 | ED General ---
General Chief Complaint: Back Problems Stated Complaint: FALL,BACK PAIN Source of Information: Patient Exam Limitations: No Limitations History of Present Illness Time Seen by Provider: 20:10 Initial Comments Here by EMS from the [facility] with report of back pain. EMS reports that he had called because his back pain was worse tonight. Patient reports that he had a fall a few days ago and has been seen by his provider. Apparently everything was okay but the back pain is worsened now. He is worried about urinary tract infection. Patient has history of self cathetering to obtain urine. On arrival, patient found to have blood sugar of 340s by EMS and we noted temperature of 102 Fahrenheit. Patient did not know he had a fever. He does believe that he has a urinary tract infection. Had vomiting a few days ago but that has subsequently stopped. States his blood sugar is high because he ate chocolate covered candy tonight. He has not vomiting tonight and no diarrhea tonight. Denies breathing problems or chest pain. Main complaint is right low back pain and feels like she has a urinary tract infection. Timing/Duration: 2-3 Days, Getting Worse Severity: Moderate Associated Systoms: No Chest Pain, No Cough, Fever/Chills, No Loss of Appetite , No Nausea/Vomiting, No Seizure, No Shortness of Air, No Weakness Allergies and Home Medications Allergies Coded Allergies: Penicillins (Verified Allergy, Severe, YEAST INFECTION, 11/26/15) celecoxib (Unverified Allergy, Unknown, 01/31/10) Home Medications Alprazolam 0.5 Mg Tablet, 0.5 MG PO TID PRN for ANXIETY, (Reported) Amitriptyline Hcl 150 Mg Tablet, 150 MG PO HS, (Reported) Amlodipine Besylate 5 Mg Tablet, 5 MG PO DAILY, (Reported) Ciprofloxacin HCl 500 Mg Tablet, 500 MG PO DAILY, #5 Ref 0 Prescribed by: SHELLY NUNEZ on 09/13/15 0323 Clopidogrel Bisulfate 75 Mg Tablet, 75 MG PO HS, (Reported) Cyclobenzaprine HCl 10 Mg Tablet, 10 MG PO TID PRN for MUSCLE SPASMS, (Reported) Finasteride 5 Mg Tablet, 5 MG PO HS, (Reported) Hydrocodone/Acetaminophen 1 Each Tablet, 1 TAB PO Q6H, (Reported) Hydrocodone/Acetaminophen 1 Each Tablet, 1 EACH PO Q6H PRN for PAIN, #10 Prescribed by: NATI LUNA on 04/20/16 1552 Hyoscyamine Sulfate 0.125 Mg Tab.subl, 1-2 TAB SL Q4H, #15 Prescribed by: PEYTON VARGAS on 08/17/16 0133 Insulin Aspart 100 Unit/1 Ml Insuln.pen, 15 UNITS SQ 1200, (Reported) LAST FILLED 03/19/15 Insulin Determir 100 U/Ml Insuln.pen, 55 UNIT SQ BID, (Reported) LAST FILLED 01/30/15 Isosorbide Mononitrate 30 Mg Tab.er.24h, 30 MG PO DAILY, #30 Ref 0 Prescribed by: ROSELIA ESTEBAN on 05/06/15 0850 Levofloxacin 250 Mg Tablet, 250 MG PO Q48H, #5 Prescribed by: NATI LUNA on 07/17/16 1429 Metoprolol Tartrate 100 Mg Tablet, 100 MG PO BID, (Reported) LAST FILLED 02/24/15 Montelukast Sodium 10 Mg Tablet, 10 MG PO HS, (Reported) Nitrofurantoin Monohyd/M-Cryst 100 Mg Capsule, 100 MG PO BID, #30 Prescribed by: PEYTON VARGAS on 08/17/16 0133 Nitroglycerin 1 Each Patch.td24, 0.4 MG TD DAILY PRN for CHEST PAIN, (Reported) Ondansetron 4 Mg Tab.rapdis, 4 MG PO Q6H PRN for NAUSEA, #10 Ref 0 Prescribed by: RAJI ZARATE on 02/17/16 1412 Oxycodone HCl/Acetaminophen 1 Each Tablet, 1 EACH PO Q6H, #10 Prescribed by: NATI LUNA on 11/26/15 1617 Pantoprazole Sodium 20 Mg Tablet.dr, 20 MG PO DAILY, #30 Ref 0 Prescribed by: ROSELIA ESTEBAN on 05/06/15 0850 Tamsulosin Hcl 0.4 Mg Cap, 0.4 MG PO HS, (Reported) Constitutional: see HPI, No chills, No diaphoresis, fever, No weakness EENTM: no symptoms reported Respiratory: No cough, No short of breath Cardiovascular: No edema, No palpitations Gastrointestinal: No abdominal pain, No nausea, No vomiting Genitourinary: see HPI, pain Musculoskeletal: see HPI, back pain, No joint pain Skin: no symptoms reported Psychiatric/Neurological: No Symptoms Reported All Other Systems Reviewed Negative Unless Noted: Yes Past Cazzgbq-Klygiv-Bhctbo Hx Patient Social History Alcohol Use: Denies Use Recreational Drug Use: No Smoking Status: Never a Smoker Recent Hopitalizations: No Physical Abuse: No Sexual Abuse: No Mistreated: No Fear: No Immunizations Up To Date Tetanus Booster (TDap): Unknown PED Vaccines UTD: No Date of Pneumonia Vaccine: Mar 30, 2012 Date of Influenza Vaccine: Jun 11, 2016 Seasonal Allergies Seasonal Allergies: No Surgeries History of Surgeries: Yes (R TKR, 3 BACK SURGERIES) Surgeries: Cardiac, Gallbladder, Joint Replacement, Orthopedic Respiratory History of Respiratory Disorde: Yes (REACTIVE AIRWAY DZ; HOME 2 AT HS ) Respiratory Disorders: Asthma, Sleep Apnea, COPD Currently Using CPAP: No Currently Using BIPAP: No Cardiovascular History of Cardiac Disorders: Yes (ARTERIAL SCLEROTIC VASCULAR DZ, MODERATE CAD ) Cardiac Disorders: Coronary Artery Disease, Heart Attack, High Cholesterol, Hypertension Neurological History of Neurological Disord: Yes (MILD MENTAL IMPAIRMENT AND SPEECH IMPEDIMENT) Neurological Disorders: Neuropathy Reproductive System Hx Reproductive Disorders: No Sexually Transmitted Disease: No HIV/AIDS: No Genitourinary Genitourinary Disorders: Benign Prostatic Hyperpl, Prostate Problems, Renal Failure, Dialysis, UTI-Chronic Gastrointestinal History of Gastrointestinal Di: Yes Gastrointestinal Disorders: Gastroesophageal Reflux, Gall Bladder Disease Musculoskeletal History of Musculoskeletal Dis: Yes (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) Musculoskeletal Disorders: Arthritis, Chronic Back Pain Endocrine History of Endocrine Disorders: Yes (DM TYPE 2) Endocrine Disorders: Diabetes, Insulin dep HEENT HEENT Disorders: Cataract Loss of Vision: Denies Hearing Impairment: Denies Cancer History of Cancer: No Psychosocial History of Psychiatric Problem: Yes Behavioral Health Disorders: Anxiety Suicide Risk Score: 0 Integumentary History of Skin or Integumenta: No Blood Transfusions History of Blood Disorders: No Reviewed Nursing Assessment Reviewed/Agree w Nursing PMH: Yes Family Medical History Significant Family History: No Pertinent Family Hx Family Medial History: Diabetes mellitus FH: rheumatoid arthritis Hypertension Physical Exam-Suspected Sepsis Physical Exam Vital Signs Vital Sign - Last 12Hours 06/22/17 20:07 Temp 102.4 Pulse 102 Resp 20 B/P (MAP) 146/101 O2 Delivery Room Air Capillary Refill : General Appearance: No Apparent Distress, WD/WN Eyes: Bilateral Eye Normal Inspection, Bilateral Eye PERRL, Bilateral Eye EOMI HEENT: Pharynx Normal Neck: Non Tender, Supple Respiratory: Lungs Clear, Normal Breath Sounds Cardiovascular: Regular Rate, Rhythm, No Murmur Gastrointestinal: Non Tender, Soft Back: Normal Inspection, No CVA Tenderness, No Vertebral Tenderness Extremity: Normal Range of Motion, Non Tender Neurologic/Psychiatric: Alert, Oriented x3 Skin: normal color, warm/dry Focused Exam Evaluation Lactate Level Laboratory Tests 06/22/17 20:34: Lactic Acid Level 2.47*H Lactic Acid Level Laboratory Tests Test 06/22/17 20:34 Lactic Acid Level 2.47 MMOL/L (0.50-2.00) *H Progress/Results/Core Measures Suspected Sepsis SIRS Temperature: Pulse: Respiratory Rate: Laboratory Tests 06/22/17 20:34: White Blood Count 5.8 Blood Pressure / Mean: Laboratory Tests 06/22/17 20:34: Lactic Acid Level 2.47*H Laboratory Tests 06/22/17 20:34: Creatinine 3.14H, INR Comment 1.2, Platelet Count 146, Total Bilirubin 0.4 Results/Orders Lab Results Laboratory Tests Test 06/22/17 20:34 06/22/17 20:50 Range/Units White Blood Count 5.8 4.3-11.0 10^3/uL Red Blood Count 3.71 L 4.35-5.85 10^6/uL Hemoglobin 11.1 L 13.3-17.7 G/DL Hematocrit 32 L 40-54 % Mean Corpuscular Volume 86 80-99 FL Mean Corpuscular Hemoglobin 30 25-34 PG Mean Corpuscular Hemoglobin Concent 35 32-36 G/DL Red Cell Distribution Width 12.5 10.0-14.5 % Platelet Count 146 130-400 10^3/uL Mean Platelet Volume 10.7 H 7.4-10.4 FL Neutrophils (%) (Auto) 69 42-75 % Lymphocytes (%) (Auto) 17 12-44 % Monocytes (%) (Auto) 13 H 0-12 % Eosinophils (%) (Auto) 0 0-10 % Basophils (%) (Auto) 1 0-10 % Neutrophils # (Auto) 4.0 1.8-7.8 X 10^3 Lymphocytes # (Auto) 1.0 1.0-4.0 X 10^3 Monocytes # (Auto) 0.8 0.0-1.0 X 10^3 Eosinophils # (Auto) 0.0 0.0-0.3 10^3/uL Basophils # (Auto) 0.0 0.0-0.1 10^3/uL Prothrombin Time 15.1 H 12.2-14.7 SEC INR Comment 1.2 0.8-1.4 Activated Partial Thromboplast Time 34 24-35 SEC Sodium Level 135 135-145 MMOL/L Potassium Level 2.9 L 3.6-5.0 MMOL/L Chloride Level 90 L 98-107 MMOL/L Carbon Dioxide Level 33 H 21-32 MMOL/L Anion Gap 12 5-14 MMOL/L Blood Urea Nitrogen 16 7-18 MG/DL Creatinine 3.14 H 0.60-1.30 MG/DL Estimat Glomerular Filtration Rate 20 BUN/Creatinine Ratio 5 Glucose Level 338 H 70-105 MG/DL Lactic Acid Level 2.47 *H 0.50-2.00 MMOL/L Calcium Level 8.3 L 8.5-10.1 MG/DL Total Bilirubin 0.4 0.1-1.0 MG/DL Aspartate Amino Transf (AST/SGOT) 11 5-34 U/L Alanine Aminotransferase (ALT/SGPT) 10 0-55 U/L Alkaline Phosphatase 69 40-136 U/L Total Protein 7.7 6.4-8.2 GM/DL Albumin 3.2 3.2-4.5 GM/DL Urine Color YELLOW Urine Clarity VERY CLOUDY H Urine pH 8 5-9 Urine Specific [place] 1.010 L 1.016-1.022 Urine Protein 3+ H NEGATIVE Urine Glucose (UA) 3+ H NEGATIVE Urine Ketones NEGATIVE NEGATIVE Urine Nitrite NEGATIVE NEGATIVE Urine Bilirubin NEGATIVE NEGATIVE Urine Urobilinogen NORMAL NORMAL MG/DL Urine Leukocyte Esterase 3+ H NEGATIVE Urine RBC (Auto) 4+ H NEGATIVE Urine RBC NONE /HPF Urine WBC TNTC H /HPF Urine Crystals NONE /LPF Urine Bacteria NONE /HPF Urine Casts NONE /LPF Urine Mucus NEGATIVE /LPF Urine Culture Indicated YES My Orders Orders - SHELLY NUNEZ MD Ua Culture If Indicated (06/22/17 20:13) Lumbar Spine - 2-3 Views (06/22/17 20:13) Cbc With Automated Diff (06/22/17 20:16) Comprehensive Metabolic Panel (06/22/17 20:16) Lactic Acid Analyzer (06/22/17 20:16) Blood Culture (06/22/17 20:16) Sputum Culture (06/22/17 20:16) Protime With Inr (06/22/17 20:16) Partial Thromboplastin Time (06/22/17 20:16) Chest 1 View, Ap/Pa Only (06/22/17 20:16) Saline Lock/Iv-Start (06/22/17 20:16) Vital Signs Adult Sepsis Patie Q1H (06/22/17 20:16) Remove Rings In Anticipation O (06/22/17 20:16) Ns Iv 1000 Ml (Sodium Chloride 0.9%) (06/22/17 20:16) Influenza A And B Antigens (06/22/17 20:17) Urine Culture (06/22/17 20:50) Ceftriaxone Injection (Rocephin Injectio (06/22/17 21:30) Acetaminophen Tablet (Tylenol Tablet) (06/22/17 21:26) Medications Given in ED Current Medications Medications Dose Ordered Sig/Gisell Route Start Time Stop Time Status Last Admin Dose Admin Ceftriaxone Sodium 1000 mg/ Sodium Chloride 50 ml @ 100 mls/hr ONCE ONCE IV 06/22/17 21:30 06/22/17 21:59 06/22/17 21:43 100 MLS/HR Sodium Chloride 1,000 ml @ 0 mls/hr Q0M ONCE IV 06/22/17 20:16 06/22/17 20:18 DC 06/22/17 20:37 1,000 MLS/HR Vital Signs/I&O Vital Sign - Last 12Hours 06/22/17 20:07 Temp 102.4 Pulse 102 Resp 20 B/P (MAP) 146/101 O2 Delivery Room Air Intake and Output 06/23/17 00:00 Intake Total 1000 ml Balance 1000 ml Capillary Refill : Progress Note : Progress Note Seen and evaluated. Patient noted to be febrile. IV, labs, UA, chest x-ray, lactic acid and blood cultures ordered. Patient reports that he is on dialysis 3 days a week and had dialysis today. Monitor patient. 2124: Urine obtained and actually looks like milk. Lactic acid is elevated. Patient will need inpatient treatment but is on dialysis and will need to go to Center capable of providing dialysis well providing therapy. Patient is normally seen at the [facility] in [place] and we will initiate transfer proceedings to there. I did discuss this with the patient and he agrees. Rocephin 1 g IV and Tylenol 1 g by mouth ordered. 2130: Initiated transfer proceedings with [facility] in [place]. 2149: I did discuss the case with the hospitalist on-call at [facility]. During the discussion, patient's history of fall was noted. Due to this and the trauma routing, patient will need to go to the ER. I did discuss the case with Dr. Guerrero in the emergency department there and he has accepted the patient for transfer. Patient to go by [facility]. Diagnostic Imaging Diagonstic Imaging: Xray Plain Films/CT/US/NM/MRI: chest Comments [facility]IA [facility]. [place], [place] [facility] REC#: [id number] PT STATUS: REG ER : 1950 PHYSICIAN: SHELLY NUNEZ MD ADMIT DATE: 06/22/17/ER Draft Date of Exam:06/22/17 CHEST 1 VIEW, AP/PA ONLY INDICATION: Back pain. COMPARISON: 08/06/2016 FINDINGS: Single frontal view of the chest demonstrates normal heart size and pulmonary vascularity. The lungs are well aerated and clear. No large pleural effusion or pneumothorax is seen. The visualized osseous structures show no acute abnormalities. IMPRESSION: 1. No acute cardiopulmonary process. Dictated on workstation # [id number] Dict: [id number] Trans: [id number]/[id number] Interpreted by: ERROL CHACON MD Electronically signed by: Reviewed: Reviewed by Me Diagonstic Imaging: Xray Plain Films/CT/US/NM/MRI: other Comments [facility]IA [facility]. [place], [place] NAME[facility] REC#: [id number] PT STATUS: REG ER : 1950 PHYSICIAN: SHELLY NUNEZ MD ADMIT DATE: 06/22/17/ER Draft Date of Exam:06/22/17 LUMBAR SPINE - 2-3 VIEWS INDICATION: Chronic lower back pain. Recent exacerbation. COMPARISON: 02/26/2015 FINDINGS: Frontal and lateral radiographic views of the lumbar spine were obtained. Postsurgical changes at the L3-L4 level are again identified and are stable. Surgical screws appear well seated. There is no evidence of loosening or hardware fracture. Intervertebral disc space material is also noted. There is mild straightening of the normal lordotic curvature of the lumbar spine. There is no significant anterolisthesis or retrolisthesis. There is no evidence of jumped facets. Static alignment is stable compared to prior exam. Vertebral body heights are maintained. There is no evidence of new acute fracture. No unexpected radiopaque foreign bodies are seen. There are multilevel degenerative changes. IMPRESSION: 1. Stable exam of the lumbar spine show postsurgical changes at L3-L4. 2. There is no evidence of acute fracture or dislocation. 3. Multilevel degenerative changes. Dictated on workstation # [id number] Dict: 06/22/[id number] Trans: 06/[id number]/172126 2020-0413 Interpreted by: ERROL CHACON MD Electronically signed by: Reviewed: Reviewed by Me Departure Impression Impression: Primary Impression: Sepsis Qualified Codes: A41.9 - Sepsis, unspecified organism Additional Impressions: Urinary tract infection Qualified Codes: N30.00 - Acute cystitis without hematuria End stage renal disease on dialysis Disposition: 02 XFER SHT-TRM HOSP Condition: Stable Transfer Time Spoke to Accepting Phy: 22:00 Transfer Time: 21:31 [place] Method of Transfer: EMS Departure-Patient Inst. Referrals: DESHAUN RICK MD (PCP/Family) Primary Care Physician SHELLY NUNEZ MD Jun 22, 2017 20:28
[2017-06-22 20:52] LABS: BASOPHILS % (AUTO) 1 % (0-10); EOSINOPHILS % (AUTO) 0 % (0-10); LYMPHOCYTES % (AUTO) 17 % (12-44); MEAN CORPUSCULAR HEMOGLOBIN 30 PG (25-34); MEAN CORPUSCULAR HGB CONC 35 G/DL (32-36); MEAN CORPUSCULAR VOLUME 86 FL (80-99); MEAN PLATELET VOLUME 10.7 FL (7.4-10.4); MONOCYTES # (AUTO) 0.8 X 10^3 (0.0-1.0); MONOCYTES % (AUTO) 13 % (0-12); NEUTROPHILS % (AUTO) 69 % (42-75); PLATELET COUNT 146 10^3/uL (130-400); RED BLOOD COUNT 3.71 10^6/uL (4.35-5.85); RED CELL DISTRIBUTION WIDTH 12.5 % (10.0-14.5); WHITE BLOOD COUNT 5.8 10^3/uL (4.3-11.0)
[2017-06-22 20:57] LABS: BILIRUBIN,URINE NEGATIVE (NEGATIVE); KETONES,URINE NEGATIVE (NEGATIVE); LEUKOCYTE ESTERASE ,URINE 3+ (NEGATIVE); NITRITE,URINE NEGATIVE (NEGATIVE); PH,URINE 8 (5-9); PROTEIN,URINE 3+ (NEGATIVE); UROBILINOGEN,URINE NORMAL (NORMAL)
[2017-06-22 21:00] LABS: INR 1.2 (0.8-1.4); PROTHROMBIN TIME PATIENT 15.1 SEC (12.2-14.7)
[2017-06-22 21:06] LABS: WBC,URINE TNTC /HPF
[2017-06-22 21:09] LABS: ALBUMIN 3.2 GM/DL (3.2-4.5); BILIRUBIN,TOTAL 0.4 MG/DL (0.1-1.0); CALCIUM 8.3 MG/DL (8.5-10.1); CREATININE SERUM 3.14 MG/DL (0.60-1.30); POTASSIUM 2.9 MMOL/L (3.6-5.0); TOTAL PROTEIN 7.7 GM/DL (6.4-8.2)
[2017-06-22] MEDS ORDERED: ACETAMINOPHEN 500 MG TAB (TYLENOL) PO STA (21:26)
--- NOTE | 2017-06-22 21:27 | Diagnostic Imaging Report ---
INDICATION: Chronic lower back pain. Recent exacerbation. COMPARISON: 02/26/2015 FINDINGS: Frontal and lateral radiographic views of the lumbar spine were obtained. Postsurgical changes at the L3-L4 level are again identified and are stable. Surgical screws appear well seated. There is no evidence of loosening or hardware fracture. Intervertebral disc space material is also noted. There is mild straightening of the normal lordotic curvature of the lumbar spine. There is no significant anterolisthesis or retrolisthesis. There is no evidence of jumped facets. Static alignment is stable compared to prior exam. Vertebral body heights are maintained. There is no evidence of new acute fracture. No unexpected radiopaque foreign bodies are seen. There are multilevel degenerative changes. IMPRESSION: 1. Stable exam of the lumbar spine show postsurgical changes at L3-L4. 2. There is no evidence of acute fracture or dislocation. 3. Multilevel degenerative changes. Dictated by: Dictated on workstation # [id number]
[2017-06-22] MEDS ORDERED: cefTRIAXone INJECTION 1,000 MG in NS (IVPB) 50 ML IV ONE (21:30)
--- NOTE | 2017-06-22 21:36 | Diagnostic Imaging Report ---
INDICATION: Back pain. COMPARISON: 08/06/2016 FINDINGS: Single frontal view of the chest demonstrates normal heart size and pulmonary vascularity. The lungs are well aerated and clear. No large pleural effusion or pneumothorax is seen. The visualized osseous structures show no acute abnormalities. IMPRESSION: 1. No acute cardiopulmonary process. Dictated by: Dictated on workstation # [id number]
[2017-06-22 22:45] VITALS: BP 129/74
== END 2017-06-22 22:45 | disposition short-term general hospital (02) ==
LOC: ER 20:07
DX: A41.9 Sepsis, unspecified organism (principal); E11.22 Type 2 diabetes mellitus with diabetic chronic kidney disease; N18.6 End stage renal disease; N39.0 Urinary tract infection, site not specified; E11.40 Type 2 diabetes mellitus with diabetic neuropathy, unspecified; I25.10 Atherosclerotic heart disease of native coronary artery without angina pectoris; I25.2 Old myocardial infarction; E78.00 Pure hypercholesterolemia, unspecified; I10 Essential (primary) hypertension; J44.9 Chronic obstructive pulmonary disease, unspecified; K21.9 Gastro-esophageal reflux disease without esophagitis; F41.9 Anxiety disorder, unspecified; Z99.2 Dependence on renal dialysis; Z79.4 Long term (current) use of insulin; Z96.651 Presence of right artificial knee joint
CPT/HCPCS: 36415; 71010; 72100; 80053; 81000; 83605; 85025; 85610; 85730; 87040; 87088; 87804

== ENCOUNTER 2017-09-01 00:27 | Emergency (ER) | payer MEDICARE, MEDICAID ==
[~2017-09-01] VITALS: Ht 188 cm; Wt 113.4 kg
[~2017-09-01 00:27] MED LIST changes: +METO100T12 PO; -METO100T2 PO
--- NOTE | 2017-09-01 00:39 | ED GI ---
General Chief Complaint: Abdominal/GI Problems Stated Complaint: NAUSEA Source of Information: Patient, EMS, Old Records Exam Limitations: Physical Impairments History of Present Illness Date Seen by Provider: Sep 01, 2017 Time Seen by Provider: 00:32 Initial Comments Patient resists ER by EMS from [place] where he lives. He is a fairly poor historian but he does give a story that about 2 days ago he started experiencing some nausea and then today started experiencing some vomiting this morning. He has not seen his doctor about this she did take at least 2 tablets of Zofran today from his own medicationsper EMS. He has not vomited since EMS picked him up and they deny that they gave him anything other than starting an IV. The patient says his belly feels distended and he had a bowel movement yesterday that was hard and he had to strain for so he used some laxative which has caused him to have another still hard stool. He says he has a history of chronic constipation. He is denying any fevers, chills, nasal congestion or ear fullness. He does not have any shortness of breath or chest pain. Allergies and Home Medications Allergies Coded Allergies: Penicillins (Verified Allergy, Severe, YEAST INFECTION, 11/26/15) celecoxib (Unverified Allergy, Unknown, 01/31/10) Home Medications Alprazolam 0.5 Mg Tablet, 0.5 MG PO TID PRN for ANXIETY, (Reported) Amitriptyline Hcl 150 Mg Tablet, 150 MG PO HS, (Reported) Amlodipine Besylate 5 Mg Tablet, 5 MG PO DAILY, (Reported) Ciprofloxacin HCl 500 Mg Tablet, 500 MG PO DAILY, #5 Ref 0 Prescribed by: SHELLY NUNEZ on 09/13/15 0323 Clopidogrel Bisulfate 75 Mg Tablet, 75 MG PO HS, (Reported) Cyclobenzaprine HCl 10 Mg Tablet, 10 MG PO TID PRN for MUSCLE SPASMS, (Reported) Finasteride 5 Mg Tablet, 5 MG PO HS, (Reported) Hydrocodone/Acetaminophen 1 Each Tablet, 1 TAB PO Q6H, (Reported) Hydrocodone/Acetaminophen 1 Each Tablet, 1 EACH PO Q6H PRN for PAIN, #10 Prescribed by: NATI LUNA on 04/20/16 1552 Hyoscyamine Sulfate 0.125 Mg Tab.subl, 1-2 TAB SL Q4H, #15 Prescribed by: PEYTON VARGAS on 08/17/16 0133 Insulin Aspart 100 Unit/1 Ml Insuln.pen, 15 UNITS SQ 1200, (Reported) LAST FILLED 03/19/15 Insulin Determir 100 U/Ml Insuln.pen, 55 UNIT SQ BID, (Reported) LAST FILLED 01/30/15 Isosorbide Mononitrate 30 Mg Tab.er.24h, 30 MG PO DAILY, #30 Ref 0 Prescribed by: ROSELIA ESTEBAN on 05/06/15 0850 Levofloxacin 250 Mg Tablet, 250 MG PO Q48H, #5 Prescribed by: NATI LUNA on 07/17/16 1429 Metoprolol Tartrate 100 Mg Tablet, 100 MG PO BID, (Reported) LAST FILLED 02/24/15 Montelukast Sodium 10 Mg Tablet, 10 MG PO HS, (Reported) Nitrofurantoin Monohyd/M-Cryst 100 Mg Capsule, 100 MG PO BID, #30 Prescribed by: PEYTON VARGAS on 08/17/16 0133 Nitroglycerin 1 Each Patch.td24, 0.4 MG TD DAILY PRN for CHEST PAIN, (Reported) Ondansetron 4 Mg Tab.rapdis, 4 MG PO Q6H PRN for NAUSEA, #10 Ref 0 Prescribed by: RAJI ZARATE on 02/17/16 1412 Oxycodone HCl/Acetaminophen 1 Each Tablet, 1 EACH PO Q6H, #10 Prescribed by: NATI LUNA on 11/26/15 1617 Pantoprazole Sodium 20 Mg Tablet.dr, 20 MG PO DAILY, #30 Ref 0 Prescribed by: ROSELIA ESTEBAN on 05/06/15 0850 Tamsulosin Hcl 0.4 Mg Cap, 0.4 MG PO HS, (Reported) Review of Systems Constitutional: No chills, No diaphoresis, No fever, malaise EENTM: No Blurred Vision, No Double Vision Respiratory: Denies Cough, Denies Shortness of Air Cardiovascular: Denies Chest Pain, Denies Edema Gastrointestinal: Denies Abdomen Distended, Denies Abdominal Pain, Constipated , Denies Diarrhea, Nausea Genitourinary: Denies Burning, Denies Discharge, Other (self straight catheter' s) Musculoskeletal: No back pain, No joint pain Skin: No pruritus, No rash Psychiatric/Neurological: Denies Headache, Denies Numbness Past Arxkvyn-Dafgyk-Pqjmnw Hx Patient Social History Recent Foreign Travel: No Contact w/Someone Who Travel: No Recent Hopitalizations: No Immunizations Up To Date Tetanus Booster (TDap): Unknown PED Vaccines UTD: No Date of Pneumonia Vaccine: Mar 30, 2012 Date of Influenza Vaccine: Jun 11, 2016 Seasonal Allergies Seasonal Allergies: No Surgeries History of Surgeries: Yes (R TKR, 3 BACK SURGERIES) Surgeries: Cardiac, Gallbladder, Joint Replacement, Orthopedic Respiratory History of Respiratory Disorde: Yes (REACTIVE AIRWAY DZ; HOME 2 AT HS ) Respiratory Disorders: Asthma, Sleep Apnea, COPD Currently Using CPAP: No Currently Using BIPAP: No Cardiovascular History of Cardiac Disorders: Yes (ARTERIAL SCLEROTIC VASCULAR DZ, MODERATE CAD ) Cardiac Disorders: Coronary Artery Disease, Heart Attack, High Cholesterol, Hypertension Neurological History of Neurological Disord: Yes (MILD MENTAL IMPAIRMENT AND SPEECH IMPEDIMENT) Neurological Disorders: Neuropathy Reproductive System Hx Reproductive Disorders: No Sexually Transmitted Disease: No HIV/AIDS: No Genitourinary Genitourinary Disorders: Benign Prostatic Hyperpl, Prostate Problems, Renal Failure, Dialysis, UTI-Chronic Gastrointestinal History of Gastrointestinal Di: Yes Gastrointestinal Disorders: Gastroesophageal Reflux, Gall Bladder Disease Musculoskeletal History of Musculoskeletal Dis: Yes (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) Musculoskeletal Disorders: Arthritis, Chronic Back Pain Endocrine History of Endocrine Disorders: Yes (DM TYPE 2) Endocrine Disorders: Diabetes, Insulin dep HEENT HEENT Disorders: Cataract Loss of Vision: Denies Hearing Impairment: Denies Cancer History of Cancer: No Psychosocial History of Psychiatric Problem: Yes Behavioral Health Disorders: Anxiety Integumentary History of Skin or Integumenta: No Blood Transfusions History of Blood Disorders: No Family Medical History Significant Family History: No Pertinent Family Hx Family Medial History: Diabetes mellitus FH: rheumatoid arthritis Hypertension Physical Exam Vital Signs VS - Last 72 Hours, by Label 09/01/17 00:27 Temp 98.4 Pulse 68 Resp 20 B/P (MAP) 139/97 (111) Pulse Ox 97 O2 Delivery Room Air Capillary Refill : General Appearance: WD/WN, no apparent distress HEENT: PERRL/EOMI, normal ENT inspection, TMs normal, pharynx normal Neck: non-tender, full range of motion, supple, normal inspection Respiratory: chest non-tender, lungs clear, normal breath sounds, no respiratory distress, no accessory muscle use Cardiovascular: normal peripheral pulses, regular rate, rhythm Peripheral Pulses: 2+ Dorsalis Pedis (R), 2+ Left Dors-Pedis (L) Gastrointestinal: normal bowel sounds, non tender, soft Extremities: non-tender, normal capillary refill Neurologic/Psychiatric: alert, normal mood/affect, oriented x 3, other (at baseline level of function) Skin: normal color, warm/dry Progress/Results/Core Measures Results/Orders Lab Results Laboratory Tests Test 09/01/17 00:31 09/01/17 02:08 Range/Units White Blood Count 6.4 4.3-11.0 10^3/uL Red Blood Count 4.39 4.35-5.85 10^6/uL Hemoglobin 13.5 13.3-17.7 G/DL Hematocrit 39 L 40-54 % Mean Corpuscular Volume 88 80-99 FL Mean Corpuscular Hemoglobin 31 25-34 PG Mean Corpuscular Hemoglobin Concent 35 32-36 G/DL Red Cell Distribution Width 13.6 10.0-14.5 % Platelet Count 157 130-400 10^3/uL Mean Platelet Volume 10.7 H 7.4-10.4 FL Neutrophils (%) (Auto) 48 42-75 % Lymphocytes (%) (Auto) 41 12-44 % Monocytes (%) (Auto) 9 0-12 % Eosinophils (%) (Auto) 2 0-10 % Basophils (%) (Auto) 1 0-10 % Neutrophils # (Auto) 3.1 1.8-7.8 X 10^3 Lymphocytes # (Auto) 2.6 1.0-4.0 X 10^3 Monocytes # (Auto) 0.6 0.0-1.0 X 10^3 Eosinophils # (Auto) 0.1 0.0-0.3 10^3/uL Basophils # (Auto) 0.1 0.0-0.1 10^3/uL Sodium Level 137 135-145 MMOL/L Potassium Level 3.5 L 3.6-5.0 MMOL/L Chloride Level 93 L 98-107 MMOL/L Carbon Dioxide Level 31 21-32 MMOL/L Anion Gap 13 5-14 MMOL/L Blood Urea Nitrogen 12 7-18 MG/DL Creatinine 3.18 H 0.60-1.30 MG/DL Estimat Glomerular Filtration Rate 20 BUN/Creatinine Ratio 4 Glucose Level 165 H 70-105 MG/DL Calcium Level 8.8 8.5-10.1 MG/DL Total Bilirubin 0.4 0.1-1.0 MG/DL Aspartate Amino Transf (AST/SGOT) 14 5-34 U/L Alanine Aminotransferase (ALT/SGPT) 11 0-55 U/L Alkaline Phosphatase 117 40-136 U/L C-Reactive Protein High Sensitivity 0.37 0.00-0.50 MG/DL Total Protein 8.6 H 6.4-8.2 GM/DL Albumin 3.8 3.2-4.5 GM/DL Urine Color YELLOW Urine Clarity CLEAR Urine pH 9 5-9 Urine Specific Proctor 1.015 L 1.016-1.022 Urine Protein 3+ H NEGATIVE Urine Glucose (UA) 3+ H NEGATIVE Urine Ketones NEGATIVE NEGATIVE Urine Nitrite NEGATIVE NEGATIVE Urine Bilirubin NEGATIVE NEGATIVE Urine Urobilinogen NORMAL NORMAL MG/DL Urine Leukocyte Esterase 3+ H NEGATIVE Urine RBC (Auto) NEGATIVE NEGATIVE Urine RBC NONE /HPF Urine WBC 10-25 H /HPF Urine Squamous Epithelial Cells NONE /HPF Urine Crystals NONE /LPF Urine Bacteria NEGATIVE /HPF Urine Casts NONE /LPF Urine Mucus NEGATIVE /LPF Urine Culture Indicated YES Micro Results Microbiology 09/01/17 Influenza Types A,B Antigen (LUCHO) - Final, Complete My Orders Orders - ALEXANDER NESS Ondansetron Oral Dissolve Tab (Zofran (09/01/17 00:45) Cbc With Automated Diff (09/01/17 00:35) Comprehensive Metabolic Panel (09/01/17 00:35) Hs C Reactive Protein (09/01/17 00:35) Ua Culture If Indicated (09/01/17 00:35) Influenza A And B Antigens (09/01/17 00:35) Abdomen/Kub 1view (09/01/17 00:35) Urine Culture (09/01/17 02:08) Ceftriaxone Injection (Rocephin Injectio (09/01/17 03:45) Medications Given in ED Current Medications Medications Dose Ordered Sig/Gisell Route Start Time Stop Time Status Last Admin Dose Admin Ondansetron HCl 4 mg ONCE ONCE PO 09/01/17 00:45 09/01/17 00:46 DC 09/01/17 02:01 4 MG Vital Signs/I&O Vital Sign - Last 12Hours 09/01/17 00:27 Temp 98.4 Pulse 68 Resp 20 B/P (MAP) 139/97 (111) Pulse Ox 97 O2 Delivery Room Air Diagnostic Imaging Diagonstic Imaging: Xray Plain Films/CT/US/NM/MRI: abdomen (KUB) Comments Some stool in the bowel but otherwise pretty nonspecific bowel gas pattern. Reviewed: Reviewed by Me Departure Impression Impression: Primary Impression: UTI (urinary tract infection) Qualified Codes: N30.00 - Acute cystitis without hematuria Disposition: HOME, SELF-CARE Condition: Stable Departure-Patient Inst. Decision time for Depature: 03:51 Referrals: DESHAUN RICK MD (PCP/Family) Primary Care Physician Patient Instructions: Acute Cystitis (DC) Add. Discharge Instructions: Drink lots of fluids and use sterile technique when self catheterizing. Follow up with your primary care physician next week to make sure things are getting better or return to the ER if you begin to develop fevers or nausea and vomiting. supervisor wound the antibiotics and start taking Omnicef one capsule twice a day for the next 7 days. All discharge instructions reviewed with patient and/or family. Voiced understanding. Scripts Cefdinir (Cefdinir) 300 Mg Capsule 300 MG PO BID for 7 Days, #14 CAP 0 Refills Prov: ALEXANDER NESS 09/01/17 Copy Copies To 1: DESHAUN RICK MD, TITUS J Sep 01, 2017 00:39
[2017-09-01 00:41] LABS: BASOPHILS # (AUTO) 0.1 10^3/uL (0.0-0.1); BASOPHILS % (AUTO) 1 % (0-10); EOSINOPHILS # (AUTO) 0.1 10^3/uL (0.0-0.3); EOSINOPHILS % (AUTO) 2 % (0-10); HEMATOCRIT 39 % (40-54); HEMOGLOBIN 13.5 G/DL (13.3-17.7); LYMPHOCYTES # (AUTO) 2.6 X 10^3 (1.0-4.0); LYMPHOCYTES % (AUTO) 41 % (12-44); MEAN CORPUSCULAR HEMOGLOBIN 31 PG (25-34); MEAN CORPUSCULAR HGB CONC 35 G/DL (32-36); MEAN CORPUSCULAR VOLUME 88 FL (80-99); MEAN PLATELET VOLUME 10.7 FL (7.4-10.4); MONOCYTES # (AUTO) 0.6 X 10^3 (0.0-1.0); MONOCYTES % (AUTO) 9 % (0-12); NEUTROPHILS # (AUTO) 3.1 X 10^3 (1.8-7.8); NEUTROPHILS % (AUTO) 48 % (42-75); PLATELET COUNT 157 10^3/uL (130-400); RED BLOOD COUNT 4.39 10^6/uL (4.35-5.85); RED CELL DISTRIBUTION WIDTH 13.6 % (10.0-14.5); WHITE BLOOD COUNT 6.4 10^3/uL (4.3-11.0)
[2017-09-01] MEDS ORDERED: ONDANSETRON 4 MG (ZOFRAN) ORAL DISSOLVE TAB PO ONE (00:45)
[2017-09-01 01:00] LABS: ALBUMIN 3.8 GM/DL (3.2-4.5); BILIRUBIN,TOTAL 0.4 MG/DL (0.1-1.0); CALCIUM 8.8 MG/DL (8.5-10.1); CREATININE SERUM 3.18 MG/DL (0.60-1.30); POTASSIUM 3.5 MMOL/L (3.6-5.0); TOTAL PROTEIN 8.6 GM/DL (6.4-8.2)
[2017-09-01 02:15] LABS: BILIRUBIN,URINE NEGATIVE (NEGATIVE); CLARITY,URINE CLEAR; COLOR,URINE YELLOW; GLUCOSE, URINE (UA) 3+ (NEGATIVE); KETONES,URINE NEGATIVE (NEGATIVE); LEUKOCYTE ESTERASE ,URINE 3+ (NEGATIVE); NITRITE,URINE NEGATIVE (NEGATIVE); PH,URINE 9 (5-9); PROTEIN,URINE 3+ (NEGATIVE); UROBILINOGEN,URINE NORMAL (NORMAL)
[2017-09-01 02:28] LABS: BACTERIA,URINE NEGATIVE /HPF
[2017-09-01] MEDS ORDERED: cefTRIAXone INJECTION 1,000 MG in NS (IVPB) 50 ML IV ONE (03:45)
[2017-09-01] MEDS ORDERED: CEFD300C3 PO (03:55)
[2017-09-01 06:44] VITALS: BP 139/97
--- NOTE | 2017-09-01 06:52 | Diagnostic Imaging Report ---
EXAMINATION: Supine abdomen at 01:04 a.m. INDICATION: Nausea and vomiting FINDINGS: Two views were obtained. There is some gas in both the large and small bowel in a nonspecific fashion. This appearance is similar to the prior lumbar spine exam of 06/22/2017. There is no evidence for bowel obstruction. There is a moderate amount of fecal material throughout the colon. There is no mass, organomegaly, or pathological calcification evident. Vascular calcifications are again seen overlying the left upper quadrant. As noted on the prior exam, there is degenerative disc and bony disease throughout the lumbar spine as well as postsurgical changes at L3-L4. There is no acute bony abnormality identified. IMPRESSION: The bowel gas pattern is nonspecific. There is no acute abnormality identified. Dictated by: Dictated on workstation # [id number]
== END 2017-09-01 04:38 | disposition home or self-care (01) ==
LOC: EDUNIT# 00:27 → ER 00:29
DX: N39.0 Urinary tract infection, site not specified (principal); J44.9 Chronic obstructive pulmonary disease, unspecified; I25.10 Atherosclerotic heart disease of native coronary artery without angina pectoris; I25.2 Old myocardial infarction; E78.00 Pure hypercholesterolemia, unspecified; E11.22 Type 2 diabetes mellitus with diabetic chronic kidney disease; I12.0 Hypertensive chronic kidney disease with stage 5 chronic kidney disease or end stage renal disease; N18.6 End stage renal disease; N40.0 Benign prostatic hyperplasia without lower urinary tract symptoms; G47.30 Sleep apnea, unspecified; K21.9 Gastro-esophageal reflux disease without esophagitis; F41.9 Anxiety disorder, unspecified; E11.40 Type 2 diabetes mellitus with diabetic neuropathy, unspecified; Z87.448 Personal history of other diseases of urinary system; Z87.19 Personal history of other diseases of the digestive system; Z88.0 Allergy status to penicillin; Z99.2 Dependence on renal dialysis; Z87.440 Personal history of urinary (tract) infections; Z88.6 Allergy status to analgesic agent; Z79.4 Long term (current) use of insulin; Z96.651 Presence of right artificial knee joint
CPT/HCPCS: 36415; 74018; 80053; 81000; 85025; 86141; 87077; 87088; 87186; 87804; 96365

== ENCOUNTER 2018-01-14 15:21 | Emergency (ER) | payer MEDICARE, MEDICAID ==
[~2018-01-14] VITALS: Ht 190.5 cm; Wt 111.1 kg
[~2018-01-14 15:21] MED LIST changes: +CEFD300C3 PO
[2018-01-14] MEDS ORDERED: RT-ALBUTEROL/IPRATROPIUM 3 ML (DUONEB) VIAL INH ONE (16:45)
--- NOTE | 2018-01-14 16:53 | ED Respiratory ---
General Chief Complaint: Respiratory Problems Stated Complaint: TROUBLE BREATHING Nursing Triage Note: Patient advises that he has become progressively more short of breath over the last couple days. He advises and intermittent cough and pain in his chest but denies fever. (LAWSON GRADY MED STUDENT) History of Present Illness Date Seen by Provider: Jan 14, 2018 Time Seen by Provider: 16:30 Initial Comments This is a 67 y/o male presenting to the ED via private vehicle with chief complaint of increasing shortness of breath over the past 3 days. Pt also reports chest pain with breathing and a dry cough. Pt has a history of asthma and COPD, he states he uses 3L of oxygen at night. Pt has used his inhaler at home, but has not used his nebulizer treatments. Pt is currently on hemodialysis , which he had today, he reports sometimes getting transient leg cramps with his dialysis treatment. Pt denies wheezing, lightheadedness, dizziness, fever, chills and diarrhea, Pt admits to intermittent constipation and abdominal pain that he is treating with a stool softener. (LAWSON GRADY MED STUDENT) Allergies and Home Medications Allergies Coded Allergies: Penicillins (Verified Allergy, Severe, YEAST INFECTION, 11/26/15) celecoxib (Unverified Allergy, Unknown, 01/31/10) Home Medications Alprazolam 0.5 Mg Tablet, 0.5 MG PO TID PRN for ANXIETY, (Reported) Amitriptyline Hcl 150 Mg Tablet, 150 MG PO HS, (Reported) Amlodipine Besylate 5 Mg Tablet, 5 MG PO DAILY, (Reported) Cefdinir 300 Mg Capsule, 300 MG PO BID Prescribed by: ALEXANDER BOYCE on 09/01/17 0355 Ciprofloxacin HCl 500 Mg Tablet, 500 MG PO DAILY Prescribed by: SHELLY NUNEZ on 09/13/15 0323 Clopidogrel Bisulfate 75 Mg Tablet, 75 MG PO HS, (Reported) Cyclobenzaprine HCl 10 Mg Tablet, 10 MG PO TID PRN for MUSCLE SPASMS, (Reported) Finasteride 5 Mg Tablet, 5 MG PO HS, (Reported) Hydrocodone/Acetaminophen 1 Each Tablet, 1 TAB PO Q6H, (Reported) Hydrocodone/Acetaminophen 1 Each Tablet, 1 EACH PO Q6H PRN for PAIN Prescribed by: NATI LUNA on 04/20/16 1552 Hyoscyamine Sulfate 0.125 Mg Tab.subl, 1-2 TAB SL Q4H Prescribed by: PEYTON VARGAS on 08/17/16 0133 Insulin Aspart 100 Unit/1 Ml Insuln.pen, 15 UNITS SQ 1200, (Reported) LAST FILLED 03/19/15 Insulin Determir 100 U/Ml Insuln.pen, 55 UNIT SQ BID, (Reported) LAST FILLED 01/30/15 Isosorbide Mononitrate 30 Mg Tab.er.24h, 30 MG PO DAILY Prescribed by: ROSELIA ESTEBAN on 05/06/15 0850 Levofloxacin 250 Mg Tablet, 250 MG PO Q48H Prescribed by: NATI LUNA on 07/17/16 1429 Metoprolol Tartrate 100 Mg Tablet, 100 MG PO BID, (Reported) LAST FILLED 02/24/15 Montelukast Sodium 10 Mg Tablet, 10 MG PO HS, (Reported) Nitrofurantoin Monohyd/M-Cryst 100 Mg Capsule, 100 MG PO BID Prescribed by: PEYTON VARGAS on 08/17/16 0133 Nitroglycerin 1 Each Patch.td24, 0.4 MG TD DAILY PRN for CHEST PAIN, (Reported) Ondansetron 4 Mg Tab.rapdis, 4 MG PO Q6H PRN for NAUSEA Prescribed by: RAJI ZARATE on 02/17/16 1412 Oxycodone HCl/Acetaminophen 1 Each Tablet, 1 EACH PO Q6H Prescribed by: NATI LUNA on 11/26/15 1617 Pantoprazole Sodium 20 Mg Tablet.dr, 20 MG PO DAILY Prescribed by: ROSELIA ESTEBAN on 05/06/15 0850 Tamsulosin Hcl 0.4 Mg Cap, 0.4 MG PO HS, (Reported) Patient Home Medication List Home Medication List Reviewed: Yes (LAWSON GRADY STUDENT) Home Medication List Reviewed: Yes (ALEXANDER BOYCE) Review of Systems Constitutional: see HPI; No chills, No dizziness, No fever EENTM: no symptoms reported Respiratory: see HPI, cough, short of breath; No wheezing; other (chest pain with breathing ) Gastrointestinal: abdominal pain (mild RUQ pain) Genitourinary: no symptoms reported Musculoskeletal: no symptoms reported Skin: no symptoms reported (LAWSON GRADY MED STUDENT) Past Gegklpk-Frhdqh-Eyishe Hx Patient Social History Alcohol Use: Denies Use Recreational Drug Use: No Smoking Status: Never a Smoker Recent Foreign Travel: No Contact w/Someone Who Travel: No Recent Infectious Disease Expo: No Recent Hopitalizations: No Physical Abuse: No Sexual Abuse: No (LAWSON GRADY) Immunizations Up To Date Tetanus Booster (TDap): Unknown PED Vaccines UTD: No Date of Pneumonia Vaccine: Mar 30, 2012 Date of Influenza Vaccine: Jun 11, 2016 (LAWSON GRADY) Seasonal Allergies Seasonal Allergies: No (LAWSON GRADY) Past Medical History Surgeries: Yes (R TKR, 3 BACK SURGERIES) Cardiac, Gallbladder, Joint Replacement, Orthopedic Respiratory: Yes (REACTIVE AIRWAY DZ; HOME 2 AT HS ) Asthma, Sleep Apnea, COPD Currently Using CPAP: No Currently Using BIPAP: No Cardiac: Yes (ARTERIAL SCLEROTIC VASCULAR DZ, MODERATE CAD) Coronary Artery Disease, Heart Attack, High Cholesterol, Hypertension Neurological: Yes (MILD MENTAL IMPAIRMENT AND SPEECH IMPEDIMENT) Neuropathy Reproductive Disorders: No Sexually Transmitted Disease: No HIV/AIDS: No Benign Prostatic Hyperpl, Prostate Problems, Renal Failure, Dialysis, UTI- Chronic Gastrointestinal: Yes Gastroesophageal Reflux, Gall Bladder Disease Musculoskeletal: Yes (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 ) Arthritis, Chronic Back Pain Endocrine: Yes (DM TYPE 2) Diabetes, Insulin dep Cataract Loss of Vision: Denies Hearing Impairment: Denies Cancer: No Psychosocial: Yes Anxiety Nursing Suicide Risk Score: 0 Integumentary: No Blood Disorders: No (LAWSON GRADY) Genitourinary: Yes (SHAYY JARAMILLO MD) Family Medical History Diabetes mellitus FH: rheumatoid arthritis Hypertension No Pertinent Family Hx (LAWSON GRADY) Physical Exam Vital Signs Vital Signs - First Documented 01/14/18 15:59 Pulse 90 Resp 18 B/P (MAP) 147/90 (109) Pulse Ox 97 O2 Delivery Room Air (SHAYY JARAMILLO MD) Vital Signs Capillary Refill : Less Than 3 Seconds (LAWSON GRADY) General Appearance: WD/WN, no apparent distress HEENT: PERRL/EOMI, normal ENT inspection, TMs normal, pharynx normal Respiratory: chest non-tender, no respiratory distress, no accessory muscle use , decreased breath sounds, wheezing (faint wheeze with full expiration ), expiration (prolonged ) Cardiovascular: normal peripheral pulses, regular rate, rhythm, no edema, no gallop, no JVD, no murmur Gastrointestinal: normal bowel sounds, soft, no organomegaly, no pulsatile mass , tenderness (Mild RUQ pain with palpation ) Extremities: normal range of motion, non-tender, normal inspection, no pedal edema, no calf tenderness Skin: normal color, warm/dry (LAWSON GRADY STUDENT) Progress/Results/Core Measures Suspected Sepsis Recent Fever Within 48 Hours: No Infection Criteria Present: None New/Unexplained Altered Menta: No Sepsis Screen: No Definite Risk SIRS Temperature: Pulse: 90 Respiratory Rate: 18 Blood Pressure 147 /90 Mean: 109 (LAWSON GRADY) Results/Orders Lab Results Laboratory Tests Test 01/14/18 18:05 Range/Units Sodium Level 139 135-145 MMOL/L Potassium Level 2.7 L 3.6-5.0 MMOL/L Chloride Level 93 L 98-107 MMOL/L Carbon Dioxide Level 33 H 21-32 MMOL/L Anion Gap 13 5-14 MMOL/L Blood Urea Nitrogen 13 7-18 MG/DL Creatinine 2.91 H 0.60-1.30 MG/DL Estimat Glomerular Filtration Rate 22 BUN/Creatinine Ratio 4 Glucose Level 189 H 70-105 MG/DL Calcium Level 8.7 8.5-10.1 MG/DL Magnesium Level 1.8 1.8-2.4 MG/DL (SHAYY JARAMILLO MD) My Orders Orders - SHAYY JARAMILLO MD Chest Pa/Lat (2 View) (01/14/18 16:43) Abdomen, Flat & Upright/Decub (01/14/18 16:43) Albuterol/Ipra Inhalation Soln (Duoneb I (01/14/18 16:45) Svn Small Volume Nebulizer (01/14/18 16:44) Saline Lock/Iv-Start (01/14/18 17:36) Basic Metabolic Panel (01/14/18 17:36) Magnesium (01/14/18 17:36) (SHAYY JARAMILLO MD) Medications Given in ED (SHAYY JARAMILLO MD) Vital Signs/I&O 01/14/18 01/14/18 01/14/18 15:59 17:22 19:03 Pulse 90 67 Resp 18 14 B/P (MAP) 147/90 (109) 124/97 Pulse Ox 97 100 96 O2 Delivery Room Air Room Air Room Air (SHAYY JARAMILLO MD) Vital Signs/I&O Capillary Refill : Less Than 3 Seconds (LAWSON GRADY STUDENT) Blood Pressure Mean: 109 Progress Note : Time: 17:20 Progress Note X-rays show no acute abnormalities; pt reports new onset of dizziness and lightheaded following breathing treatments, will check basic labs due to recent dialysis treatment. (LAWSON GRADY STUDENT) Progress Note : Time: 18:10 Progress Note This patient was personally interviewed, seen, and examined by me along with Lawson Grady, JORGE student. I agree with her history, exam, assessment, and plan with the following additions. Patient states despite worsening shortness of breath over the past couple of days he has not been using his nebulizer treatments. He does have a nebulizer machine and the medication. Patient does take dialysis intake dialysis this morning. Patient was found to have a significantly prolonged expiratory phase and some mild terminal wheezing. A DuoNeb treatment was administered. Patient then complained of feeling lightheaded and dizzy. Labs were obtained to ensure no significant electrolyte abnormalities after today's dialysis. Steroid therapy was considered as patient does have a notable COPD exacerbation. However, patient is an insulin- dependent diabetic and steroids may cause significant problems with blood sugar management. We will see how he does for a while after his breathing treatment. Care of this patient is being transferred to Dr. Boyce at this time for review of labs and reassessment of respiratory status. X-rays of the chest and abdomen were viewed by me and reports reviewed. No acute abnormalities were appreciated. Exam: Gen.: Alert, oriented, no acute distress Heart: Regular rate and rhythm without murmur Lungs: Terminal wheezing with a significantly delayed expiratory phase. Extremities: No edema or tenderness of the lower extremities (SHAYY JARAMILLO MD) Progress Note : Time: 18:48 Progress Note I assumed care of the patient and after he is received breathing treatments his lungs are clear both sides. There are no crackles rhonchi or wheezing. He is breathing much better and satting 98% on room air. We have discussed him following up with his primary care doctor later this week and he agrees to do this. I do not think given his history of diabetes that steroids are going to be advantageous. He does need to start using his nebulizers and he says he has plenty of them at home. He says he has already called his primary care doctor's office and left a voicemail with the nurse but he has not got back with them yet. Bolus potassium is low the patient is at end-stage renal dialysis patient and the concern of the more that his potassium will go high as his kidneys will not excreted so were going to leave that alone at this time. He did just have dialysis and its likely that his potassium will resolve itself over the next day or 2. (ALEXANDER BOYCE) Diagnostic Imaging Diagonstic Imaging: Xray Plain Films/CT/US/NM/MRI: abdomen Comments X-ray and report reviewed by me, see report below: NAME: [facility] REC#: [id number] PHYSICIAN: SHAYY JARAMILLO MD CC: SHAYY JARAMILLO MD; JOHN ALFORD MD Page 1 of 1 RADIOLOGY REPORT VIA [facility]. [place], [place] CC: SHAYY JARAMILLO MD; JOHN ALFORD MD Page 1 of 1 RADIOLOGY REPORT [facility] [id number] PT STATUS: REG ER : 1950 PHYSICIAN: SHAYY JARAMILLO MD ADMIT DATE: 01/14/18/ER Signed Date of Exam: 01/14/18 ABDOMEN, FLAT & UPRIGHT/DECUB INDICATION: Abdominal pain and difficulty breathing. TECHNIQUE: A KUB was obtained at 5:16 PM. FINDINGS: The abdominal bowel gas pattern is unremarkable. There is no sign of obstruction or ileus. The patient has had previous lumbar fusion which appears similar in alignment compared with 09/01/2017. The upright view shows no free air. IMPRESSION: Unremarkable bowel gas pattern with no sign of obstruction or ileus. No evidence of free air. Postop changes in the lumbar spine. Dictated by: Dictated on workstation # [id number] Dict: 01/14/181700 Trans: 01/14/181704 Interpreted by: JOHN ALFORD MD Electronically signed by: JOHN ALFORD MD 01/14/181704 Diagonstic Imaging: Xray Comments X-ray and report reviewed by me, see report below: VIA [place], [place] NAME: JUNIOR Elvia CASE [facility] REC#: [id number] PT STATUS: REG ER : 1950 PHYSICIAN: SHAYY JARAMILLO MD ADMIT DATE: 01/14/18/ER Draft Date of Exam:01/14/18 CHEST PA/LAT (2 VIEW) INDICATION: Dyspnea and abdominal pain. EXAMINATION: PA and lateral views of the chest are obtained. COMPARISON: Comparison is made to study of 06/22/2017. FINDINGS: Heart size and pulmonary vascularity are within normal limits. There is air trapping, bilaterally. Note is made of straightening of the thoracic kyphosis. Diffuse thoracic spondylosis is noted. IMPRESSION: No acute abnormality is identified. There is air trapping which likely represents emphysema. Dictated on workstation # [id number] Dict: 01/14/181700 Trans: 01/14/181706 [id number] Interpreted by: ELMO CHILDRESS MD Electronically signed by: (LAWSON GRADY MED STUDENT) Departure Impression Primary Impression: COPD exacerbation Additional Impressions: Lightheadedness End stage renal failure on dialysis Disposition: 01 HOME, SELF-CARE Condition: Improved Admissions Decision to Admit Reason: Admit from ER (General) (SHAYY JARAMILLO MD) Departure-Patient Inst. Decision time for Depature: 18:49 (ALEXANDER BOYCE) Referrals: DESHAUN RICK MD (PCP/Family) Primary Care Physician Patient Instructions: Exacerbation of COPD (DC) Add. Discharge Instructions: Use your nebulizer machine up to every 4 hours as needed for shortness of air, coughing, or wheezing. Please follow-up with your Dr. as soon as possible. Return to emergency room if symptoms worsen. All discharge instructions reviewed with patient and/or family. Voiced understanding. Copy Copies To 1: DESHAUN RICK MD, MCKENZIE MED STUDENT Jan 14, 2018 16:53 SHAYY JARAMILLO MD Jan 14, 2018 18:14 ALEXANDER BOYCE Jan 14, 2018 18:49
--- NOTE | 2018-01-14 17:05 | Diagnostic Imaging Report ---
INDICATION: Abdominal pain and difficulty breathing. TECHNIQUE: A KUB was obtained at 5:16 PM. FINDINGS: The abdominal bowel gas pattern is unremarkable. There is no sign of obstruction or ileus. The patient has had previous lumbar fusion which appears similar in alignment compared with 09/01/2017. The upright view shows no free air. IMPRESSION: Unremarkable bowel gas pattern with no sign of obstruction or ileus. No evidence of free air. Postop changes in the lumbar spine. Dictated by: Dictated on workstation # [id number]
--- NOTE | 2018-01-14 17:07 | Diagnostic Imaging Report ---
INDICATION: Dyspnea and abdominal pain. EXAMINATION: PA and lateral views of the chest are obtained. COMPARISON: Comparison is made to study of 06/22/2017. FINDINGS: Heart size and pulmonary vascularity are within normal limits. There is air trapping, bilaterally. Note is made of straightening of the thoracic kyphosis. Diffuse thoracic spondylosis is noted. IMPRESSION: No acute abnormality is identified. There is air trapping which likely represents emphysema. Dictated by: Dictated on workstation # [id number]
[2018-01-14 18:27] LABS: CALCIUM 8.7 MG/DL (8.5-10.1); CREATININE SERUM 2.91 MG/DL (0.60-1.30); MAGNESIUM 1.8 MG/DL (1.8-2.4); POTASSIUM 2.7 MMOL/L (3.6-5.0)
[2018-01-14 19:03] VITALS: BP 124/97
== END 2018-01-14 19:04 | disposition home or self-care (01) ==
LOC: EDUNIT# 15:21 → ER 15:23
DX: E11.22 Type 2 diabetes mellitus with diabetic chronic kidney disease (principal); I12.0 Hypertensive chronic kidney disease with stage 5 chronic kidney disease or end stage renal disease; N18.6 End stage renal disease; R42 Dizziness and giddiness; E11.40 Type 2 diabetes mellitus with diabetic neuropathy, unspecified; J44.1 Chronic obstructive pulmonary disease with (acute) exacerbation; G47.30 Sleep apnea, unspecified; K21.9 Gastro-esophageal reflux disease without esophagitis; I25.10 Atherosclerotic heart disease of native coronary artery without angina pectoris; I25.2 Old myocardial infarction; F41.9 Anxiety disorder, unspecified; N40.0 Benign prostatic hyperplasia without lower urinary tract symptoms; Z99.2 Dependence on renal dialysis; Z99.81 Dependence on supplemental oxygen; Z87.19 Personal history of other diseases of the digestive system; Z79.4 Long term (current) use of insulin; Z88.0 Allergy status to penicillin; Z88.6 Allergy status to analgesic agent
CPT/HCPCS: 36415; 71046; 74019; 80048; 83735; 93005; 94640

== ENCOUNTER 2018-03-16 14:49 | Emergency (ER) | payer MEDICARE, MEDICAID ==
[~2018-03-16] VITALS: Ht 188 cm; Wt 111.1 kg
--- NOTE | 2018-03-16 15:18 | ED Back Pain ---
General Chief Complaint: Back Problems Stated Complaint: BACK PAIN Source of Information: Patient Exam Limitations: Other (mental impairment) History of Present Illness Date Seen by Provider: Mar 16, 2018 Time Seen by Provider: 15:15 Initial Comments This 67-year-old white male presents with a complaint of low lumbar back pain for the past several days which became worse today causing him to present to the emergency department. Patient denies recent injury to the area. He denies associated paresthesias or weakness in the lower extremities. He denies paralysis or impaired bowel or bladder function. Past medical history of significance includes dialysis. The patient has a shunt in his left forearm. The patient is on chronic narcotic pain patches and oral narcotics. The patient is not new to fill his prescriptions until Sunday. Allergies and Home Medications Allergies Coded Allergies: Penicillins (Verified Allergy, Severe, YEAST INFECTION, 11/26/15) celecoxib (Unverified Allergy, Unknown, 01/31/10) Home Medications Alprazolam 0.5 Mg Tablet, 0.5 MG PO TID PRN for ANXIETY, (Reported) Amitriptyline Hcl 150 Mg Tablet, 150 MG PO HS, (Reported) Amlodipine Besylate 5 Mg Tablet, 5 MG PO DAILY, (Reported) Cefdinir 300 Mg Capsule, 300 MG PO BID Prescribed by: ALEXANDER NESS on 09/01/17 0355 Ciprofloxacin HCl 500 Mg Tablet, 500 MG PO DAILY Prescribed by: SHELLY NUNEZ on 09/13/15 0323 Clopidogrel Bisulfate 75 Mg Tablet, 75 MG PO HS, (Reported) Cyclobenzaprine HCl 10 Mg Tablet, 10 MG PO TID PRN for MUSCLE SPASMS, (Reported) Finasteride 5 Mg Tablet, 5 MG PO HS, (Reported) Hydrocodone/Acetaminophen 1 Each Tablet, 1 TAB PO Q6H, (Reported) Hydrocodone/Acetaminophen 1 Each Tablet, 1 EACH PO Q6H PRN for PAIN Prescribed by: NATI LUNA on 04/20/16 1552 Hyoscyamine Sulfate 0.125 Mg Tab.subl, 1-2 TAB SL Q4H Prescribed by: PEYTON VARGAS on 08/17/16 0133 Insulin Aspart 100 Unit/1 Ml Insuln.pen, 15 UNITS SQ 1200, (Reported) LAST FILLED 03/19/15 Insulin Determir 100 U/Ml Insuln.pen, 55 UNIT SQ BID, (Reported) LAST FILLED 01/30/15 Isosorbide Mononitrate 30 Mg Tab.er.24h, 30 MG PO DAILY Prescribed by: ROSELIA ESTEBAN on 05/06/15 0850 Levofloxacin 250 Mg Tablet, 250 MG PO Q48H Prescribed by: NATI LUNA on 07/17/16 1429 Metoprolol Tartrate 100 Mg Tablet, 100 MG PO BID, (Reported) LAST FILLED 02/24/15 Montelukast Sodium 10 Mg Tablet, 10 MG PO HS, (Reported) Nitrofurantoin Monohyd/M-Cryst 100 Mg Capsule, 100 MG PO BID Prescribed by: PEYTON VARGAS on 08/17/16 0133 Nitroglycerin 1 Each Patch.td24, 0.4 MG TD DAILY PRN for CHEST PAIN, (Reported) Ondansetron 4 Mg Tab.rapdis, 4 MG PO Q6H PRN for NAUSEA Prescribed by: RAJI ZARATE on 02/17/16 1412 Oxycodone HCl/Acetaminophen 1 Each Tablet, 1 EACH PO Q6H Prescribed by: NATI LUNA on 11/26/15 1617 Pantoprazole Sodium 20 Mg Tablet.dr, 20 MG PO DAILY Prescribed by: ROSELIA ESTEBAN on 05/06/15 0850 Tamsulosin Hcl 0.4 Mg Cap, 0.4 MG PO HS, (Reported) Patient Home Medication List Home Medication List Reviewed: Yes Constitutional: No chills, No fever EENTM: No hearing loss Respiratory: No cough Cardiovascular: No chest pain Gastrointestinal: No diarrhea, No vomiting Genitourinary: No dysuria, No frequency, No other Musculoskeletal: see HPI, back pain; No neck pain Skin: No change in color, No rash Psychiatric/Neurological: No Symptoms Reported Past Ejusxlu-Yuzqph-Svklst Hx Past Med/Social Hx: Reviewed Nursing Past Med/Soc Hx Patient Social History Alcohol Use: Denies Use Recreational Drug Use: No Recent Foreign Travel: No Contact w/Someone Who Travel: No Recent Hopitalizations: No Physical Abuse: No Sexual Abuse: No Mistreated: No Fear: No Immunizations Up To Date Tetanus Booster (TDap): Unknown PED Vaccines UTD: No Date of Pneumonia Vaccine: Mar 30, 2012 Date of Influenza Vaccine: Jun 11, 2016 Seasonal Allergies Seasonal Allergies: No Past Medical History Surgeries: Yes (R TKR, 3 BACK SURGERIES) Cardiac, Dialysis, Eye Surgery, Gallbladder, Joint Replacement, Orthopedic Respiratory: Yes (REACTIVE AIRWAY DZ; HOME 2 AT HS ) Asthma, Sleep Apnea, COPD Currently Using CPAP: No Currently Using BIPAP: No Cardiac: Yes (ARTERIAL SCLEROTIC VASCULAR DZ, MODERATE CAD) Coronary Artery Disease, Heart Attack, High Cholesterol, Hypertension Neurological: Yes (MILD MENTAL IMPAIRMENT AND SPEECH IMPEDIMENT) Neuropathy Reproductive Disorders: No Sexually Transmitted Disease: No HIV/AIDS: No Genitourinary: Yes Benign Prostatic Hyperpl, Prostate Problems, Renal Failure, Dialysis, UTI- Chronic Gastrointestinal: Yes Gastroesophageal Reflux, Gall Bladder Disease Musculoskeletal: Yes (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 ) Arthritis, Chronic Back Pain Endocrine: Yes (DM TYPE 2) Diabetes, Insulin dep Cataract Loss of Vision: Denies Hearing Impairment: Denies Cancer: No Psychosocial: Yes Anxiety Nursing Suicide Risk Score: 0 Integumentary: No Blood Disorders: No Family Medical History Diabetes mellitus FH: rheumatoid arthritis Hypertension No Pertinent Family Hx Physical Exam Vital Signs Vital Signs - First Documented 03/16/18 15:10 Temp 98.4 Pulse 82 Resp 16 B/P (MAP) 117/94 (102) Pulse Ox 96 Capillary Refill : Height, Weight, BMI Height: 6'3.00" Weight: 245lbs. 5.0oz. 111.176593ld; 31.20 BMI Method:Stated General Appearance: No Apparent Distress, WD/WN HEENT: Normal ENT Inspection Neck: Normal Inspection Cardiovascular: Regular Rate, Rhythm Respiratory: Lungs Clear Gastrointestinal: Normal Bowel Sounds Back: Other (. The patient's pain is located over the mid lumbar region.) Extremity: Other (there is a AV fistula in the left forearm for the patient's dialysis. A thrill is present.) Neurologic/Psychiatric: Alert, No Motor/Sensory Deficits Skin: Normal Color, Warm/Dry Progress/Results/Core Measures Results/Orders My Orders Orders - PRERNA DE LA ROSA MD Hydrocodone/Apap 5/325 Tablet (Lortab 5 (03/16/18 15:30) Lumbar Spine - 2-3 Views (03/16/18 15:18) Medications Given in ED Current Medications Medications Dose Ordered Sig/Gisell Route Start Time Stop Time Status Last Admin Dose Admin Acetaminophen/ Hydrocodone Bitart 2 tab ONCE ONCE PO 03/16/18 15:30 03/16/18 15:31 DC 03/16/18 15:35 2 TAB Vital Signs/I&O 03/16/18 15:10 Temp 98.4 Pulse 82 Resp 16 B/P (MAP) 117/94 (102) Pulse Ox 96 Progress Progress Note : Time: 16:11 Progress Note Patient's lumbar spine films demonstrate multiple level severe degenerative arthritis. Patient's pain was improved with hydrocodone orally. I discussed the need to allow his primary care physician to monitor and manage his pain medicines. I asked that he follow up with his primary care physician on Sunday for further pain meds. I invited him to return to emergency Department if any problems or questions. Departure Impression Primary Impression: Back pain Qualified Codes: M54.5 - Low back pain; G89.29 - Other chronic pain Disposition: HOME, SELF-CARE Condition: Improved Departure-Patient Inst. Decision time for Depature: 16:13 Referrals: DESHAUN RICK MD (PCP/Family) Primary Care Physician Patient Instructions: Low Back Pain (DC) Add. Discharge Instructions: Follow-up with your doctor on Sunday for further management of your low back pain. Return if any problems or questions. All discharge instructions reviewed with patient and/or family. Voiced understanding. PRERNA DE LA ROSA MD Mar 16, 2018 15:18
[2018-03-16] MEDS ORDERED: HYDROcodone/APAP 5 MG/325 MG (LORTAB) TAB PO ONE (15:30)
--- NOTE | 2018-03-16 15:45 | Diagnostic Imaging Report ---
INDICATION: Chronic back pain worsening in the last two weeks. EXAMINATION: Lumbar spine, 03/16/2018. FINDINGS: Three views of the lumbar spine. There is diffuse degenerative disease with postoperative changes along the left aspect of the spine involving the L3 and L4 vertebral bodies. There is an interbody device in the region as well as a lateral cesar with traversing screws in place at these levels. Overlying marked spurring or heterotopic ossification proximal to the screws and cesar also noted along the left lateral aspect of the L2-L3 level. There appears to be partial fusion from the vertebral bodies from the L3-L4 through the L5-S1 levels. Alignment is preserved. There is intervertebral disc space narrowing with anterior spurring and mild vacuum phenomenon at the L1-L2 level. Similar findings noted [id number] and T11-T12. An acute fracture is not appreciated. IMPRESSION: Postoperative change, as described, with diffuse multilevel degenerative changes also noted. Dictated by: Dictated on workstation # [id number]
[2018-03-16 16:19] VITALS: BP 123/84
== END 2018-03-16 16:19 | disposition home or self-care (01) ==
LOC: EDUNIT# 14:49 → ER 14:51
DX: M54.5 Low back pain (principal); J44.9 Chronic obstructive pulmonary disease, unspecified; I25.10 Atherosclerotic heart disease of native coronary artery without angina pectoris; E78.00 Pure hypercholesterolemia, unspecified; I10 Essential (primary) hypertension; E11.40 Type 2 diabetes mellitus with diabetic neuropathy, unspecified; F41.9 Anxiety disorder, unspecified; M19.90 Unspecified osteoarthritis, unspecified site; K21.9 Gastro-esophageal reflux disease without esophagitis; N40.1 Benign prostatic hyperplasia with lower urinary tract symptoms; Z99.2 Dependence on renal dialysis; Z88.0 Allergy status to penicillin; Z88.6 Allergy status to analgesic agent; Z79.4 Long term (current) use of insulin
CPT/HCPCS: 72100

== ENCOUNTER 2018-06-12 16:29 | Emergency (ER) | payer MEDICARE, MEDICAID ==
[~2018-06-12] VITALS: Ht 188 cm; Wt 113.9 kg
[~2018-06-12 16:29] MED LIST changes: +AMLO5TAB7 PO; +HYDR-4226 PO; -HYDR-757 PO; -OXYC-197 PO; +OXYC1TAB87 PO
[2018-06-12] MEDS ORDERED: NS IV 1000 ML 1,000 ML IV SCH (17:54)
[2018-06-12 18:10] LABS: BASOPHILS % (AUTO) 1 % (0-10); EOSINOPHILS # (AUTO) 0.1 10^3/uL (0.0-0.3); EOSINOPHILS % (AUTO) 1 % (0-10); HEMATOCRIT 35 % (40-54); HEMOGLOBIN 12.4 G/DL (13.3-17.7); LYMPHOCYTES # (AUTO) 1.9 X 10^3 (1.0-4.0); LYMPHOCYTES % (AUTO) 27 % (12-44); MEAN CORPUSCULAR HEMOGLOBIN 32 PG (25-34); MEAN CORPUSCULAR HGB CONC 36 G/DL (32-36); MEAN CORPUSCULAR VOLUME 90 FL (80-99); MEAN PLATELET VOLUME 11.5 FL (7.4-10.4); MONOCYTES # (AUTO) 0.8 X 10^3 (0.0-1.0); MONOCYTES % (AUTO) 11 % (0-12); NEUTROPHILS # (AUTO) 4.3 X 10^3 (1.8-7.8); NEUTROPHILS % (AUTO) 60 % (42-75); PLATELET COUNT 166 10^3/uL (130-400); RED BLOOD COUNT 3.87 10^6/uL (4.35-5.85); RED CELL DISTRIBUTION WIDTH 13.3 % (10.0-14.5); WHITE BLOOD COUNT 7.1 10^3/uL (4.3-11.0)
[2018-06-12 18:26] LABS: ALBUMIN 3.9 GM/DL (3.2-4.5); BILIRUBIN,TOTAL 0.5 MG/DL (0.1-1.0); CALCIUM 9.5 MG/DL (8.5-10.1); CREATININE SERUM 2.86 MG/DL (0.60-1.30); POTASSIUM 3.1 MMOL/L (3.6-5.0); TOTAL PROTEIN 8.4 GM/DL (6.4-8.2)
--- NOTE | 2018-06-12 18:43 | Diagnostic Imaging Report ---
EXAMINATION: Chest radiograph, portable AP view. DATE: July 12, 2018 at 1817 hours. INDICATION: 67-year-old male, dizziness. COMPARISON: January 14, 2018. FINDINGS: Stable overall appearance of the cardiomediastinal silhouette. There is no identified pneumothorax. There is no large pleural effusion. There is no identified focal airspace consolidation. There are anchors overlying the right humeral head. Widening of the right acromioclavicular joint may be postoperative related. IMPRESSION: No identified acute cardiopulmonary abnormality. Dictated by: Dictated on workstation # [id number]
[2018-06-12 18:47] LABS: BILIRUBIN,URINE NEGATIVE (NEGATIVE); CLARITY,URINE VERY CLOUDY; COLOR,URINE YELLOW; GLUCOSE, URINE (UA) 3+ (NEGATIVE); KETONES,URINE NEGATIVE (NEGATIVE); LEUKOCYTE ESTERASE ,URINE 3+ (NEGATIVE); NITRITE,URINE NEGATIVE (NEGATIVE); PH,URINE 8 (5-9); PROTEIN,URINE 3+ (NEGATIVE); UROBILINOGEN,URINE NORMAL (NORMAL)
--- NOTE | 2018-06-12 18:53 | ED General ---
General Chief Complaint: Dizziness/Syncope Stated Complaint: BLACKED OUT,DIZZY Nursing Triage Note: Pt chief complaint is dizziness. Pt stated that he blacked out around 1230. Pt stated that he fell 2-3 weeks ago and got abraison to nose. Pt also stated he took needle out of his arm on Sunday form dialysis. Pt also complained that his blood sugar has been 600 and higher recently. Nursing Sepsis Screen: No Definite Risk Source of Information: Patient, Old Records Exam Limitations: No Limitations History of Present Illness Date Seen by Provider: Jun 12, 2018 Time Seen by Provider: 16:50 Initial Comments This patient was briefly seen by Dr. Boyce and orders were placed. I then assumed care of this patient. He presents with episodes of "blacking out" during dialysis on Sunday and again today. He then had another episode at home after dialysis. It is unclear to me if he is actually having syncope or if he just fell asleep. He was not sent for assessment by the dialysis team, so I am doubtful he had a true syncopal episode at dialysis. He states that his roommate and individuals at dialysis "woke him up" makes me think he may have simply been drowsy and fell asleep. Nursing assessment Notes orthostatic tachycardia and a drop in blood pressure. It seems likely he had a little too much fluid removed during dialysis today. Patient reported high blood sugars recently as well. Patient is alert and oriented during assessment. 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 Allergies and Home Medications Allergies Coded Allergies: Penicillins (Verified Allergy, Severe, YEAST INFECTION, 11/26/15) celecoxib (Unverified Allergy, Unknown, 01/31/10) Home Medications Alprazolam 0.5 Mg Tablet, 0.5 MG PO TID PRN for ANXIETY, (Reported) Amitriptyline Hcl 150 Mg Tablet, 150 MG PO HS, (Reported) Amlodipine Besylate 5 Mg Tablet, 5 MG PO DAILY, (Reported) Cefdinir 300 Mg Capsule, 300 MG PO BID Prescribed by: ALEXANDER BOYCE on 09/01/17 0355 Ciprofloxacin HCl 500 Mg Tablet, 500 MG PO DAILY Prescribed by: SHELLY NUNEZ on 09/13/15 0323 Clopidogrel Bisulfate 75 Mg Tablet, 75 MG PO HS, (Reported) Cyclobenzaprine HCl 10 Mg Tablet, 10 MG PO TID PRN for MUSCLE SPASMS, (Reported) Finasteride 5 Mg Tablet, 5 MG PO HS, (Reported) Hydrocodone/Acetaminophen 1 Each Tablet, 1 TAB PO Q6H, (Reported) Hydrocodone/Acetaminophen 1 Each Tablet, 1 EACH PO Q6H PRN for PAIN Prescribed by: NATI LUNA on 04/20/16 1552 Hyoscyamine Sulfate 0.125 Mg Tab.subl, 1-2 TAB SL Q4H Prescribed by: PEYTON VARGAS on 08/17/16 0133 Insulin Aspart 100 Unit/1 Ml Insuln.pen, 15 UNITS SQ 1200, (Reported) LAST FILLED 03/19/15 Insulin Determir 100 U/Ml Insuln.pen, 55 UNIT SQ BID, (Reported) LAST FILLED 01/30/15 Isosorbide Mononitrate 30 Mg Tab.er.24h, 30 MG PO DAILY Prescribed by: ROSELIA ESTEBAN on 05/06/15 0850 Levofloxacin 250 Mg Tablet, 250 MG PO Q48H Prescribed by: NATI LUNA on 07/17/16 1429 Levofloxacin 250 Mg Tablet, 250 MG PO DAILY Start June 13 Prescribed by: SHAYY RODAS on 06/12/18 1923 Metoprolol Tartrate 100 Mg Tablet, 100 MG PO BID, (Reported) LAST FILLED 02/24/15 Montelukast Sodium 10 Mg Tablet, 10 MG PO HS, (Reported) Nitrofurantoin Monohyd/M-Cryst 100 Mg Capsule, 100 MG PO BID Prescribed by: PEYTON VARGAS on 08/17/16 0133 Nitroglycerin 1 Each Patch.td24, 0.4 MG TD DAILY PRN for CHEST PAIN, (Reported) Ondansetron 4 Mg Tab.rapdis, 4 MG PO Q6H PRN for NAUSEA Prescribed by: RAJI ZARATE on 02/17/16 1412 Oxycodone HCl/Acetaminophen 1 Each Tablet, 1 EACH PO Q6H Prescribed by: NATI LUNA on 11/26/15 1617 Pantoprazole Sodium 20 Mg Tablet.dr, 20 MG PO DAILY Prescribed by: ROSELIA ESTEBAN on 05/06/15 0850 Tamsulosin Hcl 0.4 Mg Cap, 0.4 MG PO HS, (Reported) Patient Home Medication List Home Medication List Reviewed: Yes Review of Systems Review of Systems Constitutional: no symptoms reported EENTM: no symptoms reported Respiratory: see HPI Cardiovascular: see HPI Gastrointestinal: no symptoms reported Genitourinary: no symptoms reported Musculoskeletal: no symptoms reported Skin: no symptoms reported Psychiatric/Neurological: See HPI Hematologic/Lymphatic: No Symptoms Reported Immunological/Allergic: no symptoms reported Past Djlstpy-Jjwlcu-Uuqrke Hx Patient Social History Alcohol Use: Denies Use Recreational Drug Use: No Smoking Status: Former Smoker Recent Foreign Travel: No Contact w/Someone Who Travel: No Recent Infectious Disease Expo: No Recent Hopitalizations: No Physical Abuse: No Sexual Abuse: No Mistreated: No Fear: No Immunizations Up To Date Tetanus Booster (TDap): Unknown PED Vaccines UTD: No Date of Pneumonia Vaccine: Mar 30, 2012 Date of Influenza Vaccine: Jun 11, 2016 Seasonal Allergies Seasonal Allergies: No Past Medical History Surgeries: Yes (R TKR, 3 BACK SURGERIES) Cardiac, Dialysis, Eye Surgery, Gallbladder, Joint Replacement, Orthopedic Respiratory: Yes (REACTIVE AIRWAY DZ; HOME 2 AT HS ) Asthma, Sleep Apnea, COPD Currently Using CPAP: No Currently Using BIPAP: No Cardiac: Yes (ARTERIAL SCLEROTIC VASCULAR DZ, MODERATE CAD) Coronary Artery Disease, Heart Attack, High Cholesterol, Hypertension Neurological: Yes (MILD MENTAL IMPAIRMENT AND SPEECH IMPEDIMENT) Neuropathy Reproductive Disorders: No Sexually Transmitted Disease: No HIV/AIDS: No Genitourinary: Yes Benign Prostatic Hyperpl, Prostate Problems, Renal Failure, Dialysis, UTI- Chronic Gastrointestinal: Yes Gastroesophageal Reflux, Gall Bladder Disease Musculoskeletal: Yes (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 ) Arthritis, Chronic Back Pain Endocrine: Yes (DM TYPE 2) Diabetes, Insulin dep Cataract Loss of Vision: Denies Hearing Impairment: Denies Cancer: No Psychosocial: Yes Anxiety Integumentary: No Blood Disorders: No Family Medical History Diabetes mellitus FH: rheumatoid arthritis Hypertension No Pertinent Family Hx Physical Exam Vital Signs Vital Signs - First Documented 06/12/18 17:01 Temp 98.3 Pulse 106 Resp 22 B/P (MAP) 95/84 (88) Pulse Ox 96 O2 Delivery Room Air Capillary Refill : Less Than 3 Seconds Height, Weight, BMI Height: 6'2.00" Weight: 251lbs. 5.0oz. 113.973237sj; 31.20 BMI Method:Stated General Appearance: No Apparent Distress, WD/WN HEENT: PERRL/EOMI, Normal ENT Inspection Neck: Normal Inspection Respiratory: Lungs Clear, Normal Breath Sounds, No Accessory Muscle Use, No Respiratory Distress Cardiovascular: Regular Rate, Rhythm, No Edema, No Murmur Gastrointestinal: Normal Bowel Sounds, Non Tender, Soft Neurologic/Psychiatric: Alert, Oriented x3, No Motor/Sensory Deficits, Normal Mood/Affect, collections rep II-XII Norm as Tested Skin: Normal Color, Warm/Dry Progress/Results/Core Measures Suspected Sepsis Recent Fever Within 48 Hours: No Infection Criteria Present: None New/Unexplained Altered Menta: No Sepsis Screen: No Definite Risk SIRS Temperature:98.3 Pulse: 106 Respiratory Rate: 22 Laboratory Tests 06/12/18 17:15: White Blood Count 7.1 Blood Pressure 95 /84 Mean: 88 Laboratory Tests 06/12/18 17:15: Creatinine 2.86H, Platelet Count 166, Total Bilirubin 0.5 Results/Orders Lab Results Laboratory Tests Test 06/12/18 16:58 06/12/18 17:15 06/12/18 18:37 Range/Units Glucometer 280 H 70-110 MG/DL White Blood Count 7.1 4.3-11.0 10^3/uL Red Blood Count 3.87 L 4.35-5.85 10^6/uL Hemoglobin 12.4 L 13.3-17.7 G/DL Hematocrit 35 L 40-54 % Mean Corpuscular Volume 90 80-99 FL Mean Corpuscular Hemoglobin 32 25-34 PG Mean Corpuscular Hemoglobin Concent 36 32-36 G/DL Red Cell Distribution Width 13.3 10.0-14.5 % Platelet Count 166 130-400 10^3/uL Mean Platelet Volume 11.5 H 7.4-10.4 FL Neutrophils (%) (Auto) 60 42-75 % Lymphocytes (%) (Auto) 27 12-44 % Monocytes (%) (Auto) 11 0-12 % Eosinophils (%) (Auto) 1 0-10 % Basophils (%) (Auto) 1 0-10 % Neutrophils # (Auto) 4.3 1.8-7.8 X 10^3 Lymphocytes # (Auto) 1.9 1.0-4.0 X 10^3 Monocytes # (Auto) 0.8 0.0-1.0 X 10^3 Eosinophils # (Auto) 0.1 0.0-0.3 10^3/uL Basophils # (Auto) 0.0 0.0-0.1 10^3/uL Sodium Level 132 L 135-145 MMOL/L Potassium Level 3.1 L 3.6-5.0 MMOL/L Chloride Level 84 L 98-107 MMOL/L Carbon Dioxide Level 33 H 21-32 MMOL/L Anion Gap 15 H 5-14 MMOL/L Blood Urea Nitrogen 14 7-18 MG/DL Creatinine 2.86 H 0.60-1.30 MG/DL Estimat Glomerular Filtration Rate 22 BUN/Creatinine Ratio 5 Glucose Level 291 H 70-105 MG/DL Calcium Level 9.5 8.5-10.1 MG/DL Corrected Calcium 9.6 8.5-10.1 MG/DL Total Bilirubin 0.5 0.1-1.0 MG/DL Aspartate Amino Transf (AST/SGOT) 15 5-34 U/L Alanine Aminotransferase (ALT/SGPT) 24 0-55 U/L Alkaline Phosphatase 135 40-136 U/L Total Protein 8.4 H 6.4-8.2 GM/DL Albumin 3.9 3.2-4.5 GM/DL Urine Color YELLOW Urine Clarity VERY CLOUDY H Urine pH 8 5-9 Urine Specific [place] 1.015 L 1.016-1.022 Urine Protein 3+ H NEGATIVE Urine Glucose (UA) 3+ H NEGATIVE Urine Ketones NEGATIVE NEGATIVE Urine Nitrite NEGATIVE NEGATIVE Urine Bilirubin NEGATIVE NEGATIVE Urine Urobilinogen NORMAL NORMAL MG/DL Urine Leukocyte Esterase 3+ H NEGATIVE Urine RBC (Auto) 3+ H NEGATIVE Urine RBC 10-25 H /HPF Urine WBC TNTC H /HPF Urine Crystals NONE /LPF Urine Bacteria MODERATE H /HPF Urine Casts NONE /LPF Urine Mucus NEGATIVE /LPF Urine Yeast FEW H /HPF Urine Culture Indicated YES My Orders Orders - SHAYY JARAMILLO MD Levofloxacin Tablet (Levaquin Tablet) (06/12/18 19:30) Medications Given in ED Current Medications Medications Dose Ordered Sig/Gisell Route Start Time Stop Time Status Last Admin Dose Admin Levofloxacin 500 mg ONCE ONCE PO 06/12/18 19:30 06/12/18 19:31 DC 06/12/18 19:37 500 MG Vital Signs/I&O 06/12/18 06/12/18 17:01 19:37 Temp 98.3 98.4 Pulse 106 93 Resp 22 18 B/P (MAP) 95/84 (88) 132/79 (96) Pulse Ox 96 96 O2 Delivery Room Air Capillary Refill : Less Than 3 Seconds Blood Pressure Mean: 88 Progress Note : Progress Note Patient received a liter of IV fluid. Heart rate was normal at discharge. Urinary tract infection was found by UA. Patient had no fever or leukocytosis to suggest sepsis. Prior urine culture was reviewed. Based on that urine culture Levaquin was selected as antibiotic of choice. Levaquin 500 mg orally was administered for initial dose. ECG Initial ECG Impression Date: Jun 12, 2018 Initial ECG Impression Time: 17:12 Initial ECG Rate: 99 Comment Sinus rhythm with no ST elevation or depression. No abnormal intervals or axis deviation. Diagnostic Imaging Diagonstic Imaging: Xray Plain Films/CT/US/NM/MRI: chest Comments Chest x-ray viewed by me and compared with prior. Report reviewed. See report below: NAME: JUNIOR Elvia [facility] REC#: [id number] PT STATUS: REG ER : 1950 PHYSICIAN: ALEXANDER BOYCE MD ADMIT DATE: 06/12/18/ER Draft Date of Exam:06/12/18 CHEST 1 VIEW, AP/PA ONLY EXAMINATION: Chest radiograph, portable AP view. DATE: July 12, 2018 at 1817 hours. INDICATION: 67-year-old male, dizziness. COMPARISON: January 14, 2018. FINDINGS: Stable overall appearance of the cardiomediastinal silhouette. There is no identified pneumothorax. There is no large pleural effusion. There is no identified focal airspace consolidation. There are anchors overlying the right humeral head. Widening of the right acromioclavicular joint may be postoperative related. IMPRESSION: No identified acute cardiopulmonary abnormality. Dictated on workstation # [id number] Dict: 06/12/18 1826 Trans: 06/12/18 1842 [facility] [id number] Interpreted by: KEO COOLEY MD Departure Impression Primary Impression: Hypovolemia Additional Impressions: Urinary tract infection Qualified Codes: N39.0 - Urinary tract infection, site not specified Syncope Qualified Codes: R55 - Syncope and collapse Hypokalemia Disposition: 01 HOME, SELF-CARE Condition: Improved Departure-Patient Inst. Decision time for Depature: 19:21 Referrals: DESHAUN RICK MD (PCP/Family) Primary Care Physician Patient Instructions: Syncope (Fainting) (DC), Urinary Tract Infection, Adult ( DC) Add. Discharge Instructions: Complete your antibiotics as prescribed. On today's you have dialysis, please take your antibiotic after dialysis is complete. Follow-up with your primary care provider soon as possible. Continue with dialysis as regularly scheduled. Return to care if you have worsening symptoms. All discharge instructions reviewed with patient and/or family. Voiced understanding. Scripts Levofloxacin (Levofloxacin) 250 Mg Tablet 250 MG PO DAILY, #4 TAB Start June 13 Prov: SHAYY JARAMILLO MD 06/12/18 Copy Copies To 1: DESHAUN RICK MD, JOSHUA T MD Jun 12, 2018 18:53
[2018-06-12 19:05] LABS: BACTERIA,URINE MODERATE /HPF; WBC,URINE TNTC /HPF; YEAST,URINE FEW /HPF
[2018-06-12] MEDS ORDERED: LEVO250T46 PO (19:23)
[2018-06-12] MEDS ORDERED: LEVOFLOXACIN 500 MG TAB (LEVAQUIN) PO ONE (19:30)
[2018-06-12 19:37] VITALS: BP 132/79
== END 2018-06-12 19:40 | disposition home or self-care (01) ==
LOC: EDUNIT# 16:29 → ER 16:31
DX: N39.0 Urinary tract infection, site not specified (principal); R55 Syncope and collapse; E87.6 Hypokalemia; E86.1 Hypovolemia; G47.30 Sleep apnea, unspecified; J44.9 Chronic obstructive pulmonary disease, unspecified; I25.10 Atherosclerotic heart disease of native coronary artery without angina pectoris; I25.2 Old myocardial infarction; E78.00 Pure hypercholesterolemia, unspecified; E11.22 Type 2 diabetes mellitus with diabetic chronic kidney disease; I12.0 Hypertensive chronic kidney disease with stage 5 chronic kidney disease or end stage renal disease; N18.6 End stage renal disease; E11.40 Type 2 diabetes mellitus with diabetic neuropathy, unspecified; F41.9 Anxiety disorder, unspecified; K21.9 Gastro-esophageal reflux disease without esophagitis; Z87.448 Personal history of other diseases of urinary system; Z99.2 Dependence on renal dialysis; Z87.19 Personal history of other diseases of the digestive system; Z88.0 Allergy status to penicillin; Z88.8 Allergy status to other drugs, medicaments and biological substances; Z79.02 Long term (current) use of antithrombotics/antiplatelets; Z79.4 Long term (current) use of insulin; Z87.891 Personal history of nicotine dependence; Z98.890 Other specified postprocedural states; Z96.651 Presence of right artificial knee joint
CPT/HCPCS: 36415; 71045; 80053; 81000; 82962; 85025; 87088

== ENCOUNTER 2018-12-13 15:48 | Emergency (ER) | payer MEDICARE, MEDICAID ==
[~2018-12-13] VITALS: Ht 188 cm; Wt 113.9 kg
[~2018-12-13 15:48] MED LIST changes: -AMLO5TAB7 PO; +AMLO5TAB9 PO; +LEVO250T46 PO
--- NOTE | 2018-12-13 17:13 | ED Back Pain ---
General Chief Complaint: Back Problems Stated Complaint: FALL/BACK PAIN Nursing Triage Note: Pt to triage in wheelchair. Pt reports normally being able to ambulate on own. Pt c/o L sided back pain that began 2-3 days ago. Pt reports falling in the back yard approximately one week ago. Pt denies hitting head or LOC. Pt reports having dialysis today. Nursing Sepsis Screen: No Definite Risk Source of Information: Patient Exam Limitations: No Limitations History of Present Illness Date Seen by Provider: December 13, 2018 Time Seen by Provider: 16:04 Allergies and Home Medications Allergies Coded Allergies: Penicillins (Verified Allergy, Severe, YEAST INFECTION, 11/26/15) celecoxib (Unverified Allergy, Unknown, 01/31/10) Home Medications Alprazolam 0.5 Mg Tablet, 0.5 MG PO TID PRN for ANXIETY, (Reported) Amitriptyline Hcl 150 Mg Tablet, 150 MG PO HS, (Reported) Amlodipine Besylate 5 Mg Tablet, 5 MG PO DAILY, (Reported) Cefdinir 300 Mg Capsule, 300 MG PO BID Prescribed by: ALEXANDER NESS on 09/01/17 0355 Ciprofloxacin HCl 500 Mg Tablet, 500 MG PO DAILY Prescribed by: SHELLY NUNEZ on 09/13/15 0323 Clopidogrel Bisulfate 75 Mg Tablet, 75 MG PO HS, (Reported) Cyclobenzaprine HCl 10 Mg Tablet, 10 MG PO TID PRN for MUSCLE SPASMS, (Reported) Finasteride 5 Mg Tablet, 5 MG PO HS, (Reported) Hydrocodone/Acetaminophen 1 Each Tablet, 1 TAB PO Q6H, (Reported) Hydrocodone/Acetaminophen 1 Each Tablet, 1 EACH PO Q6H PRN for PAIN Prescribed by: NATI LUNA on 04/20/16 1552 Hyoscyamine Sulfate 0.125 Mg Tab.subl, 1-2 TAB SL Q4H Prescribed by: PEYTON VARGAS on 08/17/16 0133 Insulin Aspart 100 Unit/1 Ml Insuln.pen, 15 UNITS SQ 1200, (Reported) LAST FILLED 03/19/15 Insulin Determir 100 U/Ml Insuln.pen, 55 UNIT SQ BID, (Reported) LAST FILLED 01/30/15 Isosorbide Mononitrate 30 Mg Tab.er.24h, 30 MG PO DAILY Prescribed by: ROSELIA ESTEBAN on 05/06/15 0850 Levofloxacin 250 Mg Tablet, 250 MG PO Q48H Prescribed by: NATI LUNA on 07/17/16 1429 Levofloxacin 250 Mg Tablet, 250 MG PO DAILY Start June 13 Prescribed by: SHAYY RODAS on 06/12/18 1923 Metoprolol Tartrate 100 Mg Tablet, 100 MG PO BID, (Reported) LAST FILLED 02/24/15 Montelukast Sodium 10 Mg Tablet, 10 MG PO HS, (Reported) Nitrofurantoin Monohyd/M-Cryst 100 Mg Capsule, 100 MG PO BID Prescribed by: PEYTON VARGAS on 08/17/16 0133 Nitroglycerin 1 Each Patch.td24, 0.4 MG TD DAILY PRN for CHEST PAIN, (Reported) Ondansetron 4 Mg Tab.rapdis, 4 MG PO Q6H PRN for NAUSEA Prescribed by: RAJI ZARATE on 02/17/16 1412 Oxycodone HCl/Acetaminophen 1 Each Tablet, 1 EACH PO Q6H Prescribed by: NATI LUNA on 11/26/15 1617 Pantoprazole Sodium 20 Mg Tablet.dr, 20 MG PO DAILY Prescribed by: ROSELIA ESTEBAN on 05/06/15 0850 Tamsulosin Hcl 0.4 Mg Cap, 0.4 MG PO HS, (Reported) Past Ivfxfuo-Wagsyq-Ybxelg Hx Patient Social History Alcohol Use: Denies Use Recreational Drug Use: No 2nd Hand Smoke Exposure: No Recent Foreign Travel: No Contact w/Someone Who Travel: No Recent Infectious Disease Expo: No Recent Hopitalizations: No Immunizations Up To Date Tetanus Booster (TDap): Unknown PED Vaccines UTD: No Date of Pneumonia Vaccine: Mar 30, 2012 Date of Influenza Vaccine: Jun 11, 2016 Seasonal Allergies Seasonal Allergies: No Past Medical History Surgeries: Yes (R TKR, 3 BACK SURGERIES) Cardiac, Dialysis, Eye Surgery, Gallbladder, Joint Replacement, Orthopedic Respiratory: Yes (REACTIVE AIRWAY DZ; HOME 2 AT HS ) Asthma, Sleep Apnea, COPD Currently Using CPAP: No Currently Using BIPAP: No Cardiac: Yes (ARTERIAL SCLEROTIC VASCULAR DZ, MODERATE CAD) Coronary Artery Disease, Heart Attack, High Cholesterol, Hypertension Neurological: Yes (MILD MENTAL IMPAIRMENT AND SPEECH IMPEDIMENT) Neuropathy Reproductive Disorders: No Sexually Transmitted Disease: No HIV/AIDS: No Genitourinary: Yes Benign Prostatic Hyperpl, Prostate Problems, Renal Failure, Dialysis, UTI- Chronic Gastrointestinal: Yes Gastroesophageal Reflux, Gall Bladder Disease Musculoskeletal: Yes (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) Arthritis, Chronic Back Pain Endocrine: Yes (DM TYPE 2) Diabetes, Insulin dep Cataract Loss of Vision: Denies Hearing Impairment: Denies Cancer: No Psychosocial: Yes Anxiety Integumentary: No Blood Disorders: No Family Medical History Diabetes mellitus FH: rheumatoid arthritis Hypertension No Pertinent Family Hx Physical Exam Vital Signs Vital Signs - First Documented 12/13/18 15:50 Temp 98.2 Pulse 70 Resp 19 B/P (MAP) 112/67 (82) Pulse Ox 98 O2 Delivery Room Air Capillary Refill : Less Than 3 Seconds Height, Weight, BMI Height: 6'2.00" Weight: 251lbs. 5.0oz. 113.495758mi; 31.20 BMI Method:Stated Progress/Results/Core Measures Results/Orders My Orders Orders - SOO RAYMUNDO Ct Lumbar Spine Wo (12/13/18 16:04) Vital Signs/I&O 12/13/18 15:50 Temp 98.2 Pulse 70 Resp 19 B/P (MAP) 112/67 (82) Pulse Ox 98 O2 Delivery Room Air Blood Pressure Mean: 82 Departure Impression Primary Impression: Back pain Disposition: 01 HOME, SELF-CARE Condition: Stable/Unchanged Departure-Patient Inst. Decision time for Depature: 17:15 Referrals: DESHAUN RICK MD (PCP/Family) Primary Care Physician Patient Instructions: Low Back Pain (DC) Add. Discharge Instructions: Take medication as directed. Continue to use your home medication as previously prescribed. Follow-up with your primary care provider within 1 week for a recheck. Return back to the emergency room for worsening symptoms or concerns as needed. All discharge instructions reviewed with patient and/or family. Voiced understanding. SOO RAYMUNDO December 13, 2018 17:13
[2018-12-13] MEDS ORDERED: RX-HYDROCODONE/APAP 5/325 MG #4 TAB PK PO PRN (17:15)
--- NOTE | 2018-12-13 17:22 | Diagnostic Imaging Report ---
PROCEDURE: CT lumbar spine without contrast. TECHNIQUE: Multiple contiguous axial images were obtained through the lumbar spine without the use of intravenous contrast. Sagittal and coronal reformations were then performed. Auto Exposure Controls were utilized during the CT exam to meet ALARA standards for radiation dose reduction. INDICATION: Left-sided back pain. Recent fall. Prior lumbar surgery. COMPARISON: Comparison made to plain films from 03/16/2018. FINDINGS: Patient is status post unilateral left-sided posterior instrumented fusion of L3-4 as well as a L3-4 direct lateral interbody fusion. Screw positioning appears unremarkable. There is no evidence of osteolysis around the screws or evidence of a screw fracture. There is a slight retrolisthesis of L5 on S1. There is a gentle dextroscoliotic curvature. There are advanced endplate changes as well as multilevel severe disc space height loss. There is fusion across the L4-5 and L5-S1 disc spaces. There are large anterior lower thoracic and lumbar osteophytes. There is no evidence of an acute fracture. The vertebral body heights appear maintained. There is no suspicious marrow replacing lesion. There appears to be a healed remote proximal right eleventh rib fracture. By CT imaging, there is no high-grade lower thoracic canal stenosis. At L1-2, there is a large disc osteophyte complex eccentric to the right which appears to result in moderate narrowing of the central canal and severe narrowing of the right lateral recess. There is moderate left and severe right foraminal stenosis. At L2-3, there is mild facet hypertrophy. There is no significant central canal stenosis. There is minimal narrowing of both neural foramina. L3-4 demonstrates disc osteophyte complex, facet arthropathy and ligamentous thickening with moderate narrowing of the central canal. There is severe narrowing of the lateral recesses. There is [id number] right and moderate left foraminal stenosis due to endplate spurring and hypertrophic facets. At the L4-5 level, facet arthropathy is present. There is endplate spurring. There is mild to moderate narrowing of the central canal and moderate narrowing of the lateral recesses. There is mild to moderate bilateral foraminal stenosis. At the L5-S1 level, endplate spurring and facet arthropathy are present with severe left and moderate right foraminal stenosis. There is no significant canal stenosis. Bones of the pelvis unremarkable. There is no SI joint diastasis. The paravertebral soft tissues unremarkable. The aorta is normal in caliber. There is no retroperitoneal adenopathy. IMPRESSION: 1. Previous operative changes of unilateral left-sided posterior instrumented fusion of L3-4 as well as a left-sided direct lateral interbody fusion of the L3-4 level. There is no hardware complication. 2. No acute or suspicious osseous abnormality. 3. Advanced multilevel degenerative disc disease and facet arthropathy. Variable degrees of central canal, lateral recess and neural foraminal stenosis throughout the lumbar spine are detailed level by level. Dictated by: Dictated on workstation # [id number]
[2018-12-13 17:41] VITALS: BP 112/67
== END 2018-12-13 17:35 | disposition home or self-care (01) ==
LOC: EDUNIT# 15:48 → ER 15:49
DX: M54.9 Dorsalgia, unspecified (principal); J44.9 Chronic obstructive pulmonary disease, unspecified; I10 Essential (primary) hypertension; I25.10 Atherosclerotic heart disease of native coronary artery without angina pectoris; I25.2 Old myocardial infarction; E78.00 Pure hypercholesterolemia, unspecified; K21.9 Gastro-esophageal reflux disease without esophagitis; E11.40 Type 2 diabetes mellitus with diabetic neuropathy, unspecified; F41.9 Anxiety disorder, unspecified; Z87.440 Personal history of urinary (tract) infections; Z88.0 Allergy status to penicillin; Z88.6 Allergy status to analgesic agent; Z79.02 Long term (current) use of antithrombotics/antiplatelets; Z79.4 Long term (current) use of insulin; Z96.651 Presence of right artificial knee joint; Z99.2 Dependence on renal dialysis; Z82.49 Family history of ischemic heart disease and other diseases of the circulatory system; W18.30XA Fall on same level, unspecified, initial encounter
CPT/HCPCS: 72131

== ENCOUNTER 2019-08-15 15:46 | Emergency (ER) | payer MEDICARE, MEDICAID ==
[~2019-08-15] VITALS: Ht 187.9 cm; Wt 109.1 kg
--- NOTE | 2019-08-15 15:54 | ED Integumentary General ---
General Stated Complaint: BLEEDING Source: patient, EMS History of Present Illness Date Seen by Provider: Aug 15, 2019 Time Seen by Provider: 15:54 Initial Comments 69-year-old male sent in with concerns for dialysis catheter. Patient "picked the scab off his dialysis catheter" and it was bleeding. They report that they put pressure on it for 50 minutes of the dialysis center. Upon arrival to the ER by EMS there is no active bleeding. There is a bandage. There are no other concerns or complaints at this time Allergies and Home Medications Allergies Coded Allergies: Penicillins (Verified Allergy, Severe, YEAST INFECTION, 11/26/15) celecoxib (Unverified Allergy, Unknown, 01/31/10) Home Medications Alprazolam 0.5 Mg Tablet, 0.5 MG PO TID PRN for ANXIETY, (Reported) Amitriptyline Hcl 150 Mg Tablet, 150 MG PO HS, (Reported) Amlodipine Besylate 5 Mg Tablet, 5 MG PO DAILY, (Reported) Cefdinir 300 Mg Capsule, 300 MG PO BID Prescribed by: ALEXANDER NESS on 09/01/17 0355 Ciprofloxacin HCl 500 Mg Tablet, 500 MG PO DAILY Prescribed by: SHELLY NUNEZ on 09/13/15 0323 Clopidogrel Bisulfate 75 Mg Tablet, 75 MG PO HS, (Reported) Cyclobenzaprine HCl 10 Mg Tablet, 10 MG PO TID PRN for MUSCLE SPASMS, (Reported) Finasteride 5 Mg Tablet, 5 MG PO HS, (Reported) Hydrocodone/Acetaminophen 1 Each Tablet, 1 TAB PO Q6H, (Reported) Hydrocodone/Acetaminophen 1 Each Tablet, 1 EACH PO Q6H PRN for PAIN Prescribed by: NATI LUNA on 04/20/16 1552 Hyoscyamine Sulfate 0.125 Mg Tab.subl, 1-2 TAB SL Q4H Prescribed by: PEYTON VARGAS on 08/17/16 0133 Insulin Aspart 100 Unit/1 Ml Insuln.pen, 15 UNITS SQ 1200, (Reported) LAST FILLED 03/19/15 Insulin Determir 100 U/Ml Insuln.pen, 55 UNIT SQ BID, (Reported) LAST FILLED 01/30/15 Isosorbide Mononitrate 30 Mg Tab.er.24h, 30 MG PO DAILY Prescribed by: ROSELIA ESTEBAN on 05/06/15 0850 Levofloxacin 250 Mg Tablet, 250 MG PO Q48H Prescribed by: NATI LUNA on 07/17/16 1429 Levofloxacin 250 Mg Tablet, 250 MG PO DAILY Start June 13 Prescribed by: SHAYY RODAS on 06/12/18 1923 Metoprolol Tartrate 100 Mg Tablet, 100 MG PO BID, (Reported) LAST FILLED 02/24/15 Montelukast Sodium 10 Mg Tablet, 10 MG PO HS, (Reported) Nitrofurantoin Monohyd/M-Cryst 100 Mg Capsule, 100 MG PO BID Prescribed by: PEYTON VARGAS on 08/17/16 0133 Nitroglycerin 1 Each Patch.td24, 0.4 MG TD DAILY PRN for CHEST PAIN, (Reported) Ondansetron 4 Mg Tab.rapdis, 4 MG PO Q6H PRN for NAUSEA Prescribed by: RAJI ZARATE on 02/17/16 1412 Oxycodone HCl/Acetaminophen 1 Each Tablet, 1 EACH PO Q6H Prescribed by: NATI LUNA on 11/26/15 1617 Pantoprazole Sodium 20 Mg Tablet.dr, 20 MG PO DAILY Prescribed by: ROSELIA ESTEBAN on 05/06/15 0850 Tamsulosin Hcl 0.4 Mg Cap, 0.4 MG PO HS, (Reported) Patient Home Medication List Home Medication List Reviewed: Yes Review of Systems Review of Systems Constitutional: No chills, No fever Respiratory: no symptoms reported Cardiovascular: no symptoms reported Gastrointestinal: no symptoms reported Skin: see HPI Past [id number] Hx Past Med/Social Hx: Reviewed Nursing Past Med/Soc Hx Patient Social History 2nd Hand Smoke Exposure: No Recent Foreign Travel: No Contact w/Someone Who Travel: No Recent Hopitalizations: No Immunizations Up To Date Tetanus Booster (TDap): Unknown PED Vaccines UTD: No Date of Pneumonia Vaccine: Mar 30, 2012 Date of Influenza Vaccine: Jun 11, 2016 Seasonal Allergies Seasonal Allergies: No Past Medical History Surgeries: Yes (R TKR, 3 BACK SURGERIES) Cardiac, Dialysis, Eye Surgery, Gallbladder, Joint Replacement, Orthopedic Respiratory: Yes (REACTIVE AIRWAY DZ; HOME 2 AT HS ) Asthma, Sleep Apnea, COPD Currently Using CPAP: No Currently Using BIPAP: No Cardiac: Yes (ARTERIAL SCLEROTIC VASCULAR DZ, MODERATE CAD) Coronary Artery Disease, Heart Attack, High Cholesterol, Hypertension Neurological: Yes (MILD MENTAL IMPAIRMENT AND SPEECH IMPEDIMENT) Neuropathy Reproductive Disorders: No Sexually Transmitted Disease: No HIV/AIDS: No Genitourinary: Yes Benign Prostatic Hyperpl, Prostate Problems, Renal Failure, Dialysis, UTI- Chronic Gastrointestinal: Yes Gastroesophageal Reflux, Gall Bladder Disease Musculoskeletal: Yes (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) Arthritis, Chronic Back Pain Endocrine: Yes (DM TYPE 2) Diabetes, Insulin dep Cataract Loss of Vision: Denies Hearing Impairment: Denies Cancer: No Psychosocial: Yes Anxiety Integumentary: No Blood Disorders: No Family Medical History Diabetes mellitus FH: rheumatoid arthritis Hypertension No Pertinent Family Hx Physical Exam Vital Signs Capillary Refill : General Appearance: WD/WN, no apparent distress Cardiovascular: normal peripheral pulses, regular rate, rhythm Respiratory: lungs clear, normal breath sounds Gastrointestinal: non tender, soft Skin: other (renal dialysis catheter present in the left arm with a small ulceration, no active bleeding. No other acute changes) Progress/Results/Core Measures Results/Orders My Orders Orders - ZORAIDA HARRINGTON DO Wound Dressing-Ed (08/15/19 15:54) Departure Impression Primary Impression: Encounter for dialysis catheter care Disposition: 01 HOME, SELF-CARE Condition: Stable Departure-Patient Inst. Referrals: DESHAUN RICK MD (PCP/Family) Primary Care Physician Add. Discharge Instructions: Leave dressing on dialysis catheter until next dialysis appointment Emergency department focuses on treating and ruling out life-threatening diseases. Whenever possible, a diagnosis is given. However, most patients are given an impression based on their history, physical exam, and workup during your brief time in the ER. Information about probable diagnosis and other educational material has been provided. Please take the time to read and understand this information. It is very important that you follow up with a physician as discussed during the visit today. Failure to adhere to your follow-up instructions may lead to severe disability, injury, or so please make sure to keep your appointments or obtain one as requested. Please keep in mind the emergency department is not designed to your primary care or "family doctor" and nonurgent issues are best evaluated by an outpatient physician ZORAIDA HARRINGTON DO Aug 15, 2019 15:54
[2019-08-15 16:20] VITALS: BP 109/67
== END 2019-08-15 16:20 | disposition home or self-care (01) ==
LOC: EDUNIT# 15:46 → ER 15:47
DX: Z45.2 Encounter for adjustment and management of vascular access device (principal); J44.9 Chronic obstructive pulmonary disease, unspecified; I10 Essential (primary) hypertension; E11.40 Type 2 diabetes mellitus with diabetic neuropathy, unspecified; E78.00 Pure hypercholesterolemia, unspecified; I25.10 Atherosclerotic heart disease of native coronary artery without angina pectoris; I25.2 Old myocardial infarction; F41.9 Anxiety disorder, unspecified; K21.9 Gastro-esophageal reflux disease without esophagitis; Z88.0 Allergy status to penicillin; Z88.6 Allergy status to analgesic agent; Z79.02 Long term (current) use of antithrombotics/antiplatelets; Z87.440 Personal history of urinary (tract) infections; Z79.4 Long term (current) use of insulin; Z96.651 Presence of right artificial knee joint; Z82.49 Family history of ischemic heart disease and other diseases of the circulatory system
CPT/HCPCS: 99283